=== PATIENT | female | born 1950 | race Caucasian/White ===

== ENCOUNTER 2020-09-15 06:35 | Outpatient (REF) | payer MEDICARE, SELFPAY ==
[2020-09-15 13:28] LABS: Hematocrit 41.9 % (37-47); Hemoglobin 13.4 g/dl (12.0-16.0); Mean Corpuscular Hemoglobin 30.2 pg (27.0-33.0); Mean Corpuscular Volume 94.6 fL (80-98); Mean Platelet Volume 9.6 fL (9.4-12.3); Platelet Count 254 X10*3/uL (160-400); Red Blood Count 4.43 X10*6/uL (4.20-5.50); Red Cell Distribution Width 11.9 % (11.0-16.0); White Blood Count 6.7 X10*3/uL (4.8-10.8)
[2020-09-15 13:57] LABS: Glucose Urine UA NEG (NEG); Leukocyte Esterase Urine TRACE (NEG); Nitrite Urine NEG (NEG); PH 7.5 (5.0-8.0); Specific Gravity - Urine 1.015 (1.005-1.025); Urine Blood 1+ (NEG); Urine Ketones NEG (NEG); Urine Protein NEG (NEG-TRACE)
[2020-09-15 14:02] LABS: Appearance Urine CLEAR; Color Urine YELLOW
[2020-09-15 14:12] LABS: Alanine Aminotransferase 18 U/L (0-31); Albumin Level 4.3 g/dL (3.5-5.0); Alkaline Phosphatase 70 U/L (39-117); Anion Gap 12 (12-20); Aspartate Amino Transferase 18 U/L (5-31); Bilirubin Total 0.3 mg/dL (0.0-1.0); Blood Urea Nitrogen 12 mg/dL (9-16); Calcium 9.1 mg/dL (8.4-10.2); Carbon Dioxide 29 mmol/L (22-29); Chloride 98 mmol/L (96-108); Cholesterol 246 mg/dL; Estimated Glomerular Filt Rate > 60; Glucose Fasting 93 mg/dL (60-99); HDL Cholesterol 70 mg/dL; LDL Cholesterol Calculated 146 mg/dl; Potassium 4.5 mmol/l (3.3-5.1); Sodium 134 mmol/L (135-145); Total Protein 7.1 g/dL (6.5-8.0); Triglycerides 151 mg/dL
[2020-09-15 14:17] LABS: Squamous Epithelial Cell Urine 1+ /LPF
[2020-09-15 14:18] LABS: Renal Epithelial Cells Urine 1+ /LPF
[2020-09-15 14:35] LABS: Thyroid Stimulating Hormone 1.06 uIU/mL (0.32-4.0); Vitamin D 25-OH Total 44.7 ng/mL (>30)
== END 2020-09-15 06:36 | disposition home or self-care (01) ==
LOC: HO.HMGCLDS 06:35
PROVIDERS: PCP Internal Medicine; Visit Provider Internal Medicine
DX: Z00.00 Encounter for general adult medical examination without abnormal findings (principal); E78.5 Hyperlipidemia, unspecified; E55.9 Vitamin D deficiency, unspecified; M79.7 Fibromyalgia
CPT/HCPCS: 36415; 80053; 80061; 81001; 81003; 82306; 84443; 85027

== ENCOUNTER 2020-10-12 09:12 | Outpatient (REF) | payer MEDICARE, SELFPAY ==
--- NOTE | 2020-10-12 09:15 | MM_ITS ---
EXAMINATION: MM SCREENING DIGITAL BREAST TOMOSYNTHESIS, BILATERAL CLINICAL INFORMATION: Screening. Asymptomatic. The lifetime risk of breast cancer based on the Tyrer-Cuzick Model is 5.1%. COMPARISON: Mammography: October 11, 2019 and studies dating back to May 15, 2016 TECHNIQUE: Digital breast tomosynthesis is performed in both the craniocaudal and mediolateral oblique views along with computer-aided detection (CAD). Synthesized 2D images are generated from the tomosynthesis. FINDINGS: There are scattered areas of fibroglandular density (ACR BI-RADS breast composition Category b). There are no significant masses, abnormal calcifications, or other abnormalities. MM/MM tomosynthesis screening BI IMPRESSION: There are no significant changes from prior study. ASSESSMENT: BI-RADS 1: Negative RECOMMENDATION: Routine annual mammography screening. This patient's information was entered into a reminder system with a target due date for their next mammogram.
== END 2020-10-12 09:13 | disposition home or self-care (01) ==
LOC: HO.MAMMO 09:12
PROVIDERS: Visit Provider Internal Medicine
DX: Z12.31 Encounter for screening mammogram for malignant neoplasm of breast (principal)
CPT/HCPCS: 77063; 77067

== ENCOUNTER 2020-12-29 09:00 | Outpatient (REF) | payer MEDICARE, SELFPAY ==
--- NOTE | ~2020-12-29 | XR_ITS ---
EXAMINATION: BILATERAL HAND X-RAY CLINICAL INFORMATION: Arthritis COMPARISON: None TECHNIQUE: 3 views each hand FINDINGS: Left: Bone alignment is normal. No fracture or dislocation is seen. There is arthritis at the first FPC joint and DIP joints with joint space narrowing and osteophyte formation. Soft tissues are unremarkable. Right: Bone alignment is normal. No fracture or dislocation is seen. There is arthritis at the first MCP see joint and DIP joints with joint space narrowing and osteophyte formation. Soft tissues are unremarkable. 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
--- NOTE | ~2020-12-29 | XR_ITS ---
EXAMINATION: BILATERAL HAND X-RAY CLINICAL INFORMATION: Arthritis COMPARISON: None TECHNIQUE: 3 views each hand FINDINGS: Left: Bone alignment is normal. No fracture or dislocation is seen. There is arthritis at the first RESIDENTIAL joint and DIP joints with joint space narrowing and osteophyte formation. Soft tissues are unremarkable. Right: Bone alignment is normal. No fracture or dislocation is seen. There is arthritis at the first MCP see joint and DIP joints with joint space narrowing and osteophyte formation. Soft tissues are unremarkable. XR/XR hand LT min 3V IMPRESSION: Bilateral osteoarthritis at the first RESIDENTIAL joints and DIP joints.
== END 2020-12-29 09:01 | disposition home or self-care (01) ==
LOC: HO.HMGCX 09:00
PROVIDERS: PCP Internal Medicine; Visit Provider Internal Medicine
DX: M19.90 Unspecified osteoarthritis, unspecified site (principal)
CPT/HCPCS: 73130

== ENCOUNTER 2021-01-01 06:11 | Outpatient (REF) | payer MEDICARE, SELFPAY ==
[2021-01-01 11:21] LABS: Hematocrit 43.5 % (37-47); Hemoglobin 14.2 g/dl (12.0-16.0); Mean Corpuscular HGB Conc 32.6 g/dl (31.0-35.0); Mean Corpuscular Hemoglobin 30.5 pg (27.0-33.0); Mean Corpuscular Volume 93.3 fL (80-98); Mean Platelet Volume 9.7 fL (9.4-12.3); Platelet Count 270 X10*3/uL (160-400); Red Blood Count 4.66 X10*6/uL (4.20-5.50); White Blood Count 7.5 X10*3/uL (4.8-10.8)
[2021-01-01 11:47] LABS: Alanine Aminotransferase 18 U/L (0-31); Albumin Level 4.4 g/dL (3.5-5.0); Alkaline Phosphatase 82 U/L (39-117); Anion Gap 14 (12-20); Aspartate Amino Transferase 19 U/L (5-31); Bilirubin Total 0.6 mg/dL (0.0-1.0); Blood Urea Nitrogen 10 mg/dL (9-16); Calcium 9.6 mg/dL (8.4-10.2); Carbon Dioxide 28 mmol/L (22-29); Chloride 99 mmol/L (96-108); Estimated Glomerular Filt Rate > 60; Glucose Fasting 96 mg/dL (60-99); Potassium 4.4 mmol/L (3.3-5.1); Rheumatoid Factor < 15.0 IU/mL (<15.0); Sodium 137 mmol/L (135-145); Total Protein 7.5 g/dL (6.5-8.0)
[2021-01-03 12:51] LABS: Cyclic Citrullinated Peptide <16 UNITS
== END 2021-01-01 06:12 | disposition home or self-care (01) ==
LOC: HO.HMGCLDS 06:11
PROVIDERS: PCP Internal Medicine; Visit Provider Internal Medicine
DX: M19.90 Unspecified osteoarthritis, unspecified site (principal)
CPT/HCPCS: 36415; 80053; 85027; 86200; 86431

== ENCOUNTER 2021-09-25 06:18 | Outpatient (REF) | payer MEDICARE, SELFPAY ==
[2021-09-25 11:50] LABS: Appearance Urine CLEAR; Color Urine YELLOW; Glucose Urine UA NEG (NEG); Leukocyte Esterase Urine 1+ (NEG); Nitrite Urine NEG (NEG); Urine Blood 2+ (NEG); Urine Ketones NEG (NEG); Urine Protein NEG (NEG-TRACE)
[2021-09-25 11:55] LABS: Hematocrit 39.8 % (37.0-47.0); Hemoglobin 13.4 g/dl (12.0-16.0); Mean Corpuscular HGB Conc 33.7 g/dl (31.0-35.0); Mean Corpuscular Hemoglobin 30.7 pg (27.0-33.0); Mean Corpuscular Volume 91.3 fL (80.0-98.0); Mean Platelet Volume 9.6 fL (9.4-12.3); Platelet Count 257 X10*3/uL (160-400); Red Blood Count 4.36 X10*6/uL (4.20-5.50); Red Cell Distribution Width 12.2 % (11.0-16.0); White Blood Count 6.6 X10*3/uL (4.8-10.8)
[2021-09-25 12:18] LABS: Alanine Aminotransferase 18 U/L (0-31); Albumin Level 4.1 g/dL (3.5-5.0); Alkaline Phosphatase 70 U/L (39-117); Anion Gap 14 (12-20); Aspartate Amino Transferase 18 U/L (5-31); Bilirubin Total 0.5 mg/dL (0.0-1.0); Blood Urea Nitrogen 10 mg/dL (9-16); Calcium 9.3 mg/dL (8.4-10.2); Carbon Dioxide 24 mmol/L (22-29); Chloride 95 mmol/L (96-108); Cholesterol 236 mg/dL; Estimated Glomerular Filt Rate > 60; Glucose Fasting 90 mg/dL (60-99); HDL Cholesterol 59 mg/dL; LDL Cholesterol Calculated 142 mg/dl; Potassium 4.3 mmol/L (3.3-5.1); Sodium 129 mmol/L (135-145); Total Protein 7.1 g/dL (6.5-8.0); Triglycerides 178 mg/dL
[2021-09-25 12:32] LABS: Renal Epithelial Cells Urine TRACE /LPF; Squamous Epithelial Cell Urine 1+ /LPF
[2021-09-25 12:33] LABS: Bacteria Urine TRACE /LPF
[2021-09-25 12:45] LABS: Thyroid Stimulating Hormone 1.39 uIU/mL (0.32-4.0); Vitamin D 25-OH Total 52.3 ng/mL (>30)
== END 2021-09-25 06:19 | disposition home or self-care (01) ==
LOC: HO.HMGCLDS 06:18
PROVIDERS: PCP Internal Medicine; Visit Provider Internal Medicine
DX: E78.5 Hyperlipidemia, unspecified (principal); G40.209 Localization-related (focal) (partial) symptomatic epilepsy and epileptic syndromes with complex partial seizures, not intractable, without status epilepticus; E55.9 Vitamin D deficiency, unspecified
CPT/HCPCS: 36415; 80053; 80061; 81001; 82306; 84443; 85027

== ENCOUNTER 2021-09-26 11:44 | Outpatient (REF) | payer MEDICARE, SELFPAY ==
--- NOTE | ~2021-09-26 | XR_ITS ---
EXAMINATION: XR THORACOLUMBAR SPINE CLINICAL INFORMATION: Hyperosmolality and hyponatremia COMPARISON: None TECHNIQUE: AP and lateral lumbar spine. FINDINGS: No acute thoracic spine fractures identified. There is multilevel degenerative disc disease seen from the mid through L1 with disc space narrowing and marginal sclerosis with some spurring. No abnormal paraspinal line bulge is seen. There is unfolding of the thoracic aorta. Visualized pedicles are intact. There is kyphosis present. XR/XR thoracic spine 2V IMPRESSION: Multilevel degenerative disc disease. No acute fracture identified.
[2021-09-26 14:25] LABS: Osmolality, Serum 283 mosm/kg (281-305)
[2021-09-26 14:42] LABS: Anion Gap 16 (12-20); Blood Urea Nitrogen 9 mg/dL (9-16); Calcium 9.7 mg/dL (8.4-10.2); Carbon Dioxide 23 mmol/L (22-29); Chloride 96 mmol/L (96-108); Estimated Glomerular Filt Rate > 60; Glucose Random 87 mg/dL (60-115); Sodium 131 mmol/L (135-145)
[2021-09-26 14:44] LABS: Osmolality Urine 271 mosm/kg (373-1093)
== END 2021-09-26 11:45 | disposition home or self-care (01) ==
LOC: HO.HMGCX 11:44
PROVIDERS: PCP Internal Medicine; Visit Provider Internal Medicine
DX: E87.1 Hypo-osmolality and hyponatremia (principal); M54.9 Dorsalgia, unspecified
CPT/HCPCS: 36415; 72070; 80048; 83930; 83935

== ENCOUNTER 2021-11-16 13:47 | Outpatient (REF) | payer MEDICARE, SELFPAY ==
--- NOTE | ~2021-11-16 | MM_ITS ---
EXAMINATION: MM SCREENING DIGITAL BREAST TOMOSYNTHESIS, BILATERAL CLINICAL INFORMATION: Screening. Asymptomatic. The lifetime risk of breast cancer based on the Tyrer-Cuzick Model is 5%. COMPARISON: Mammography: 10/12/2020, 10/11/2019, outside mammography 10/05/2018 ([facility]). TECHNIQUE: Digital breast tomosynthesis is performed in both the craniocaudal and mediolateral oblique views along with computer-aided detection (CAD). Synthesized 2D images are generated from the tomosynthesis. Additional right MLO view is provided. FINDINGS: There are scattered areas of fibroglandular density (ACR BI-RADS breast composition Category b). There are no significant masses, abnormal calcifications, or other abnormalities. Parenchymal pattern is similar to prior studies. There is no developing density or architectural abnormality. The axilla and skin contours are unremarkable. No significant changes. MM/MM tomosynthesis screening BI IMPRESSION: No mammographic evidence of malignancy. ASSESSMENT: BI-RADS 1: Negative RECOMMENDATION: Routine annual mammography screening. This patient's information was entered into a reminder system with a target due date for their next mammogram.
== END 2021-11-16 13:48 | disposition home or self-care (01) ==
LOC: HO.MAMMO 13:47
PROVIDERS: Visit Provider Internal Medicine
DX: Z12.31 Encounter for screening mammogram for malignant neoplasm of breast (principal)
CPT/HCPCS: 77063; 77067

== ENCOUNTER 2022-09-30 06:13 | Outpatient (REF) | payer MEDICARE, SELFPAY ==
[2022-09-30 12:15] LABS: Anion Gap 12 (12-20); Blood Urea Nitrogen 10 mg/dL (9-16); Calcium 9.8 mg/dL (8.4-10.2); Carbon Dioxide 28 mmol/L (22-29); Chloride 97 mmol/L (96-108); Estimated Glomerular Filt Rate > 60; Glucose Random 103 mg/dL (60-115); Potassium 4.1 mmol/L (3.3-5.1); Sodium 133 mmol/L (135-145)
== END 2022-09-30 06:14 | disposition home or self-care (01) ==
LOC: HO.HMGCLDS 06:13
PROVIDERS: PCP Internal Medicine; Visit Provider Internal Medicine
DX: E87.1 Hypo-osmolality and hyponatremia (principal)
CPT/HCPCS: 36415; 80048

== ENCOUNTER 2022-12-30 07:30 | Outpatient (REF) | payer MEDICARE, SELFPAY ==
--- NOTE | ~2022-12-30 | MM_ITS ---
EXAMINATION: MM SCREENING DIGITAL BREAST TOMOSYNTHESIS, BILATERAL CLINICAL INFORMATION: Screening. Asymptomatic. The lifetime risk of breast cancer based on the Tyrer-Cuzick Model is 7%. COMPARISON: Mammography: 11/16/2021, 10/12/2020, 10/11/2019; outside mammography 10/05/2018 ([facility]) TECHNIQUE: Digital breast tomosynthesis is performed in both the craniocaudal and mediolateral oblique views along with computer-aided detection (CAD). Synthesized 2D images are generated from the tomosynthesis. FINDINGS: There are scattered areas of fibroglandular density (ACR BI-RADS breast composition Category b). There are no significant masses, abnormal calcifications, or other abnormalities. Parenchymal pattern is similar to prior studies. There is no developing density or architectural abnormality. The axilla and skin contours are unremarkable. No significant changes. MM/MM tomosynthesis screening BI IMPRESSION: No mammographic evidence of malignancy. ASSESSMENT: BI-RADS 1: Negative RECOMMENDATION: Routine annual mammography screening. This patient's information was entered into a reminder system with a target due date for their next mammogram.
== END 2022-12-30 07:31 | disposition home or self-care (01) ==
LOC: HO.MAMMO 07:30
PROVIDERS: PCP Internal Medicine; Visit Provider Internal Medicine
DX: Z12.31 Encounter for screening mammogram for malignant neoplasm of breast (principal)
CPT/HCPCS: 77063; 77067

== ENCOUNTER 2023-01-10 06:33 | Outpatient (REF) | payer MEDICARE, SELFPAY ==
[2023-01-10 11:26] LABS: MANUAL DIFF FLAG NO
[2023-01-10 11:39] LABS: Basophils Absolute Auto 0.1 X10*3/uL (0.0-0.2); Basophils Percent Auto 0.8 % (0-2); Eosinophils Absolute Auto 0.1 X10*3/uL (0.0-0.4); Eosinophils Percent Auto 0.9 % (0-4); Hemoglobin 13.9 g/dl (12.0-16.0); Imm Gran Abs Auto 0.04 X10*3/uL (0.00-0.03); Imm Gran Pct Auto 0.6 % (0.0-0.4); Lymphocytes Absolute Auto 1.1 X10*3/uL (1.2-4.9); Mean Corpuscular HGB Conc 33.1 g/dl (31.0-35.0); Mean Corpuscular Volume 90.7 fL (80.0-98.0); Mean Platelet Volume 9.3 fL (9.4-12.3); Monocytes Absolute Auto 0.5 X10*3/uL (0.1-1.2); Monocytes Percent Auto 7.2 % (2-11); Neutrophils Absolute Auto 4.8 x10*3/uL (2.0-8.3); Neutrophils Percent Auto 73.5 % (45-73); Platelet Count 257 X10*3/uL (160-400); Red Blood Count 4.63 X10*6/uL (4.20-5.50); Red Cell Distribution Width 12.2 % (11.0-16.0); White Blood Count 6.5 X10*3/uL (4.8-10.8)
[2023-01-10 11:50] LABS: Alanine Aminotransferase 18 U/L (0-31); Albumin Level 4.3 g/dL (3.5-5.0); Alkaline Phosphatase 92 U/L (39-117); Anion Gap 14 (12-20); Aspartate Amino Transferase 18 U/L (5-31); Bilirubin Total 0.5 mg/dL (0.0-1.0); Blood Urea Nitrogen 10 mg/dL (9-16); Calcium 9.8 mg/dL (8.4-10.2); Carbon Dioxide 26 mmol/L (22-29); Chloride 96 mmol/L (96-108); Cholesterol 258 mg/dL; Estimated Glomerular Filt Rate > 60; Glucose Fasting 106 mg/dL (60-99); HDL Cholesterol 70 mg/dL; LDL Cholesterol Calculated 160 mg/dl; Potassium 4.3 mmol/L (3.3-5.1); Sodium 132 mmol/L (135-145); Total Protein 7.2 g/dL (6.5-8.0); Triglycerides 140 mg/dL
[2023-01-10 12:09] LABS: TSH reflex Free T4 1.19 uIU/mL (0.32-4.0); Vitamin D 25-OH Total 60.6 ng/mL (>30)
[2023-01-10 13:01] LABS: Osmolality, Serum 280 mosm/kg (281-305)
[2023-01-10 13:06] LABS: Osmolality Urine 289 mosm/kg (373-1093)
== END 2023-01-10 06:34 | disposition home or self-care (01) ==
LOC: HO.HMGCLDS 06:33
PROVIDERS: PCP Internal Medicine; Visit Provider Internal Medicine
DX: Z00.00 Encounter for general adult medical examination without abnormal findings (principal); E87.1 Hypo-osmolality and hyponatremia; E55.9 Vitamin D deficiency, unspecified; E78.5 Hyperlipidemia, unspecified
CPT/HCPCS: 36415; 80053; 80061; 82306; 83930; 83935; 84443; 85025

== ENCOUNTER 2024-01-06 07:23 | Outpatient (REF) | payer MEDICARE, SELFPAY ==
--- NOTE | ~2024-01-06 | MM_ITS ---
EXAMINATION: BONE DENSITOMETRY CLINICAL INDICATION: Asymptomatic menopausal state. COMPARISON: This is the patient's baseline examination. TECHNIQUE: Using a MySQUAR DXA System (software version: 13.1) manufactured by [employer], dual-energy x-ray absorptiometry was performed of the lumbar spine and left hip. The images are of good technical quality. Summary results are attached. FINDINGS: LEFT FEMUR, NECK: BMD 0.942 g/cm2, Z-score 0.5, T-score -0.7, normal. LEFT FEMUR, TOTAL: BMD 0.955 g/cm2, Z-score 0.5, T-score 0.4, normal. AP SPINE L1-L2 (excluding L3 and L4): The data of L1-L4 has been changed to exclude the L3 and L4 vertebral bodies, because degenerative sclerosis at these levels may cause overestimation of lumbar spine density. BMD 0.949 g/cm2, Z-score -1.0, T-score -1.8, osteopenia. IDENTIFIED RISK FACTORS: Menopause, anticonvulsant. HISTORY OF FRACTURE: None listed. MEDICATIONS: Vitamin D. MM/XR DEXA axial skeleton IMPRESSION: 1. DIAGNOSIS: Osteopenia based on the lowest T-score value of -1.8 in the lumbar spine applying World Health Organization criteria. 2. 10-YEAR FRACTURE RISK PREDICTION, FRAX: Major osteoporotic fracture (clinical spine, forearm, hip or shoulder) 8.1%. Hip fracture 0.8%. 3. Treatment Recommendations: NOF guidelines recommend consideration for treatment in postmenopausal women and men age 50 and older presenting with the following: -A hip or vertebral (clinical or morphometric) fracture. -T-score less than or equal to -2.5 at the femoral neck or spine after appropriate evaluation to exclude secondary causes. -Low bone mass at the hip or spine and a 10-year fracture probability by FRAX of greater than or equal to 3% for hip fracture or greater than or equal to 20% for major osteoporotic fracture based on the [place] adapted WHO algorithm. 4. Other Recommendations: All treatment decisions require clinical judgment and consideration of individual patient factors, including patient preferences, comorbidities, previous drug use, risk factors not captured in the FRAX model (e.g. frailty, falls, vitamin D deficiency, increased bone turnover, interval significant decline in bone density) and possible under or overestimation of fracture risk by FRAX. Additional medical evaluation for secondary cause of low bone mineral density may be appropriate. FUTURE SCAN RECOMMENDATION: People with diagnosed cases of osteoporosis or at high risk for fracture should have regular bone mineral density tests. For patients eligible for Medicare, routine testing is allowed once every 2 years. The testing frequency can be increased to one year for patients who have rapidly progressing disease, those who are receiving or discontinuing medical therapy to restore bone mass, or have additional risk factors.
== END 2024-01-06 07:24 | disposition home or self-care (01) ==
LOC: HO.MAMMO 07:23
PROVIDERS: PCP Internal Medicine; Visit Provider Internal Medicine
DX: Z12.31 Encounter for screening mammogram for malignant neoplasm of breast (principal); Z13.820 Encounter for screening for osteoporosis; Z78.0 Asymptomatic menopausal state
CPT/HCPCS: 77063; 77067; 77080

== ENCOUNTER → 2024-01-06 08:15 | Outpatient (BNV) | payer MEDICARE, SELFPAY | PROVIDERS: PCP Internal Medicine; Visit Provider Radiology Diagnostic Radiology | DX: Z12.31 Encounter for screening mammogram for malignant neoplasm of breast (principal) | CPT/HCPCS: 77063; 77067 ==

== ENCOUNTER 2024-01-09 08:33 | Outpatient (AMB) | payer MEDICARE, SELFPAY ==
[2024-01-09 08:35] VITALS: BP 136/76; PULSE 78; O2SAT 98; BMI 32.8
--- NOTE | 2024-01-09 08:35 | A.OFFPC_ITS ---
Vital Signs 01/09/24 08:35 Height 5 ft 6 in Weight 203 lb BMI 32.8 BP 136/76 Blood Pressure Location Lt brachial Position Sitting Pulse 78 Pulse Source Pulse Oximeter Pulse Oximetry (%) 98 Oxygen Delivery Method Room Air Intake Visit Reasons: ER follow up Intake Note: Pt is here today for ER follow up visit. Allergies Quinolones [QUINOLONES] Allergy (Unknown, Verified 01/09/24 08:38) UNKNOWN Mpfopvc-WSG-OfO Reductase Inhibitor [GFANZRT-WFD-EWT REDUCTASE INHIBITOR] Allergy (Unknown, Verified 01/09/24 08:38) UNKNOWN Medication List - Last Reconciled 01/09/24 by Darline Mckeon MD aspirin 81 mg PO DAILY biotin 1,000 mcg PO DAILY cholecalciferol (vitamin D3) 25 mcg PO DAILY coenzyme Q10 (Ultra CoQ10) PO ezetimibe 10 mg PO DAILY flu vac 2020 [id number](PF) 60 mcg (15 mcg x 4)/0.5 mL IM glucosamine-chondroitin 250-200 mg (Osteo Bi-Flex) 1 tab PO ONCE oxcarbazepine 300 mg PO BID turmeric root extract 500 mg PO DAILY Tobacco use date assessed: 01/09/24 Fall risk assessment: 1 Fall in past year Last assessed Fall Risk: 01/09/24 Dental Screening Dental Screen Date: 01/09/24 Did you have a dental visit in the last 12 months?: Yes Did you have a dental problem in the last 6 months where you did not have access to dental care?: No Was dental information given to patient?: Patient has dentist HPI ER follow up HPI Details Patient presents for the follow-up of ER visit on December 18 after slip and fall in the bathroom. patient hit her face and developed some bruises around her right eye. ER workup including head CT was negative. Patient denies loss of consciousness, headache, change in balance following the fall. She is going for cataract surgery in mid February. [facility] Medical History (Updated 01/09/24 @ 09:35 by Darline Mckeon MD) Postmenopausal Hyponatremia Back pain Hyperacusis of left ear Arthritis Annual physical exam (~09/27/21) Vitamin D deficiency Normal colonoscopy Hyperlipidemia Inguinal hernia Complex partial seizure Fibromyalgia Surgical History History of colonoscopy Family History Father Parkinson disease Dementia Mother CVD (cardiovascular disease) Brother Afib Daughter No problems noted. Daughter No problems noted. Social History Housing: House Alcohol intake: current Alcohol intake frequency: a few times a month Patient Tobacco Use Status: Former Tobacco user Quit Date: 1983 e-Cigarette/Vaping Use: Never Used Current occupational status: employed Cognitive needs: No Hearing needs: No Vision needs: Yes Questionnaire Thrive Questionnaire Date Thrive assessed: 01/08/23 AUDIT C Alcohol Use Questionnaire (AUDIT-C) 1. How often do you have a drink containing alcohol?: Never 3. How often do you have six or more drinks on one occasion?: Never Total Score: 0 DAYA-7 AMB Questionnaire DAYA-7 Date DAYA - 7 assessed: 01/08/23 Feeling nervous, anxious, or on edge: 1 = Several days Not being able to stop or control worryin = Several days Worrying too much about different things: 1 = Several days Trouble relaxin = Several days Being so restless that it is hard to sit still: 0 = Not at all Becoming easily annoyed or irritable: 1 = Several days Feeling afraid as if something awful might happen: 1 = Several days Total DAYA-7 score (0-4 normal; 5-9 mild; 10-14 moderate; 15-21 severe): 6 Source: Developed by Drs. Rommel Atkinson, Yisel Morales, Saul Troy and colleagues, with an educational lisa from [employer]. Review of Systems Const All systems reviewed & are unremarkable except as noted in HPI and below Reports no additional complaints Eyes Reports no additional complaints ENT Reports no additional complaints Card Reports no additional complaints Resp Reports no additional complaints GI Reports no additional complaints Reports no additional complaints Physical exam (Primary Care) Vital Signs: Last Vital Signs Pulse 78 01/09/24 08:35 BP 136/76 01/09/24 08:35 Pulse Ox 98 01/09/24 08:35 Oxygen Delivery Method Room Air 01/09/24 08:35 BMI result Body Mass Index 32.8 Tobacco/Smoking Status: Tobacco use Status Tobacco use date assessed 01/09/24 01/09/24 08:41 Patient Tobacco Use Status Former Tobacco user 01/09/24 08:35 e-Cigarette/Vaping Use Never Used 01/09/24 08:35 Thrive Assessment: Date of Thrive Assessment Date Thrive assessed 01/08/23 01/09/24 08:35 Const General: no acute distress HENMT Other: Periorbital ecchymosis around the right eye Ears: hearing grossly normal bilaterally Neck Neck: Yes supple Resp Effort & Inspection: normal respiratory effort Auscultation: clear to auscultation bilaterally Cardio Rhythm: regular rhythm Heart sounds: S1 normal heart sound present and S2 normal heart sound present Assessment and Plan Assessment & Plan (1) Hyponatremia: 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 Code(s): E87.1 - Hypo-osmolality and hyponatremia Plan: Continue fluid restriction patient will return for fasting labs including comprehensive panel, she follow-up in 2 months (2) Cataract: Code(s): H26.9 - Unspecified cataract Plan: Patient is medically cleared for cataract surgery (3) Vitamin D deficiency: Code(s): E55.9 - Vitamin D deficiency, unspecified Plan: Continue vitamin-D supple (4) Hyperlipidemia: Comment: intolerant to statin, improved on Zetia, refuses treatment Code(s): E78.5 - Hyperlipidemia, unspecified Plan: Continue low-cholesterol diet and Zetia (5) Osteopenia: Comment: DEXA 01/03 Code(s): M85.80 - Other specified disorders of bone density and structure, unspecified site Plan: Weight-bearing exercises and vitamin-D supplement discussed with the patient Orders: Orders Comprehensive [place]. Panel Fast Today E55.9 - Vitamin D deficiency, unspecified, E78.5 - Hyperlipidemia, unspecified, E87.1 - Hypo-osmolality and hyponatremia, H26.9 - Unspecified cataract TSH reflex Free T4 Today E55.9 - Vitamin D deficiency, unspecified, E78.5 - Hyperlipidemia, unspecified, E87.1 - Hypo-osmolality and hyponatremia, H26.9 - Unspecified cataract Complete Blood Count Auto Diff Today E55.9 - Vitamin D deficiency, unspecified, E78.5 - Hyperlipidemia, unspecified, E87.1 - Hypo-osmolality and hyponatremia, H26.9 - Unspecified cataract Lipid Panel Today E55.9 - Vitamin D deficiency, unspecified, E78.5 - Hyperlipidemia, unspecified, E87.1 - Hypo-osmolality and hyponatremia, H26.9 - Unspecified cataract Vitamin D 25-OH Total Today E55.9 - Vitamin D deficiency, unspecified, E78.5 - Hyperlipidemia, unspecified, E87.1 - Hypo-osmolality and hyponatremia, H26.9 - Unspecified cataract Coding Level of Care Code Est Pt Level 4 (79514) Diagnoses Hyponatremia E87.1 Cataract H26.9 Vitamin D deficiency E55.9 Hyperlipidemia E78.5 Osteopenia M85.80
== END 2024-01-09 09:38 | disposition home or self-care (01) ==
PROVIDERS: PCP Internal Medicine; Visit Provider Internal Medicine
DX: E87.1 Hypo-osmolality and hyponatremia (principal); H26.9 Unspecified cataract; E55.9 Vitamin D deficiency, unspecified; E78.5 Hyperlipidemia, unspecified; M85.80 Other specified disorders of bone density and structure, unspecified site
CPT/HCPCS: 99214

== ENCOUNTER 2024-02-24 08:25 | Outpatient (REF) | payer MEDICARE, SELFPAY ==
[2024-02-24 10:17] LABS: MANUAL DIFF FLAG NO
[2024-02-24 10:24] LABS: Basophils Absolute Auto 0.1 X10*3/uL (0.0-0.2); Basophils Percent Auto 1.2 % (0-2); Eosinophils Absolute Auto 0.1 X10*3/uL (0.0-0.4); Eosinophils Percent Auto 2.1 % (0-4); Hematocrit 40.7 % (37.0-47.0); Hemoglobin 13.4 g/dl (12.0-16.0); Imm Gran Abs Auto 0.04 X10*3/uL (0.00-0.03); Imm Gran Pct Auto 0.7 % (0.0-0.4); Lymphocytes Absolute Auto 1.5 X10*3/uL (1.2-4.9); Lymphocytes Percent Auto 25.8 % (20-40); Mean Corpuscular HGB Conc 32.9 g/dl (31.0-35.0); Mean Corpuscular Hemoglobin 30.5 pg (27.0-33.0); Mean Corpuscular Volume 92.7 fL (80.0-98.0); Mean Platelet Volume 9.2 fL (9.4-12.3); Monocytes Absolute Auto 0.5 X10*3/uL (0.1-1.2); Monocytes Percent Auto 9.4 % (2-11); Neutrophils Absolute Auto 3.4 x10*3/uL (2.0-8.3); Neutrophils Percent Auto 60.8 % (45-73); Platelet Count 256 X10*3/uL (160-400); Red Blood Count 4.39 X10*6/uL (4.20-5.50); White Blood Count 5.6 X10*3/uL (4.8-10.8)
[2024-02-24 11:00] LABS: Alanine Aminotransferase 17 U/L (0-31); Albumin Level 4.3 g/dL (3.5-5.0); Alkaline Phosphatase 80 U/L (39-117); Anion Gap 12 (12-20); Aspartate Amino Transferase 19 U/L (5-31); Bilirubin Total 0.4 mg/dL (0.0-1.0); Blood Urea Nitrogen 9 mg/dL (9-16); Calcium 9.8 mg/dL (8.4-10.2); Carbon Dioxide 27 mmol/L (22-29); Chloride 99 mmol/L (96-108); Cholesterol 236 mg/dL (<200); Estimated Glomerular Filt Rate > 60; Glucose Fasting 96 mg/dL (60-99); HDL Cholesterol 72 mg/dL (>40); LDL Cholesterol Calculated 137 mg/dL (<100); Sodium 134 mmol/L (135-145); Total Protein 7.6 g/dL (6.5-8.0); Triglycerides 137 mg/dL (<150)
[2024-02-24 11:09] LABS: Vitamin D 25-OH Total 65.6 ng/mL (>30)
== END 2024-02-24 08:26 | disposition home or self-care (01) ==
LOC: HO.HMGCLDS 08:25
PROVIDERS: PCP Internal Medicine; Visit Provider Internal Medicine
DX: E87.1 Hypo-osmolality and hyponatremia (principal); H26.9 Unspecified cataract; E78.5 Hyperlipidemia, unspecified; E55.9 Vitamin D deficiency, unspecified
CPT/HCPCS: 36415; 80053; 80061; 82306; 84443; 85025

== ENCOUNTER 2024-03-11 10:01 | Outpatient (AMB) | payer MEDICARE, SELFPAY ==
--- NOTE | 2024-03-11 10:11 | A.OFFPC_ITS ---
Vital Signs 03/11/24 10:17 Height 5 ft 6 in Weight 204 lb BMI 32.9 BP 130/74 Blood Pressure Location Rt brachial Position Sitting Pulse 72 Pulse Source Pulse Oximeter Pulse Oximetry (%) 97 Oxygen Delivery Method Room Air Intake Visit Reasons: 2 month follow up Intake Note: Pt is here today for 2 months follow up visit on BP. Allergies Quinolones [QUINOLONES] Allergy (Unknown, Verified 03/11/24 10:12) UNKNOWN Qvujbgc-TQK-DxL Reductase Inhibitor [YZGALJS-HAK-EXY REDUCTASE INHIBITOR] Allergy (Unknown, Verified 03/11/24 10:12) UNKNOWN Medication List - Last Reconciled 03/11/24 by Darline Mckeon MD aspirin 81 mg PO DAILY biotin 1,000 mcg PO DAILY cholecalciferol (vitamin D3) 25 mcg PO DAILY coenzyme Q10 (Ultra CoQ10) PO ezetimibe 10 mg PO DAILY flu vac 2020 [id number](PF) 60 mcg (15 mcg x 4)/0.5 mL IM glucosamine-chondroitin 250-200 mg (Osteo Bi-Flex) 1 tab PO ONCE olmesartan 5 mg PO DAILY oxcarbazepine 300 mg PO BID turmeric root extract 500 mg PO DAILY Tobacco use date assessed: 03/11/24 Dental Screening Dental Screen Date: 01/09/24 HPI 2 month follow up HPI Details Pt presents for f/u hyperlipidemia, borderline hyponatremia secondary to SIADH. Seizure disorder is controlled on oxcarbamazepine [facility] Medical History (Updated 03/11/24 @ 11:01 by Darline Mckeon MD) Complex partial seizure Postmenopausal Hyponatremia Back pain Hyperacusis of left ear Arthritis Annual physical exam (~09/27/21) Vitamin D deficiency Normal colonoscopy Hyperlipidemia Inguinal hernia Fibromyalgia Surgical History History of colonoscopy Family History Father Parkinson disease Dementia Mother CVD (cardiovascular disease) Brother Afib Daughter No problems noted. Daughter No problems noted. Social History Housing: House Alcohol intake: current Alcohol intake frequency: a few times a month Patient Tobacco Use Status: Former Tobacco user Quit Date: 1983 e-Cigarette/Vaping Use: Never Used service: No Current occupational status: employed Cognitive needs: No Hearing needs: No Vision needs: Yes Questionnaire Thrive Questionnaire Date Thrive assessed: 01/08/23 DAYA-7 AMB Questionnaire DAYA-7 Date DAYA - 7 assessed: 01/08/23 Source: Developed by Drs. Rommel Atkinson, Yisel Morales, Saul Troy and colleagues, with an educational lisa from [employer]. Review of Systems Const All systems reviewed & are unremarkable except as noted in HPI and below ENT Reports no additional complaints Card Reports no additional complaints Resp Reports no additional complaints GI Reports no additional complaints Reports no additional complaints Physical exam (Primary Care) Vital Signs: Last Vital Signs Pulse 72 03/11/24 10:17 BP 130/74 03/11/24 10:17 Pulse Ox 97 03/11/24 10:17 Oxygen Delivery Method Room Air 03/11/24 10:17 BMI result Body Mass Index 32.9 Tobacco/Smoking Status: Tobacco use Status Tobacco use date assessed 03/11/24 03/11/24 10:12 Patient Tobacco Use Status Former Tobacco user 03/11/24 10:12 e-Cigarette/Vaping Use Never Used 03/11/24 10:12 Thrive Assessment: Date of Thrive Assessment Date Thrive assessed 01/08/23 03/11/24 10:12 Const General: no acute distress HENMT Head: Yes normal to inspection Throat: Yes posterior oropharynx normal Eyes General: appearance normal, both eyes and all related structures Neck Neck: Yes no lymphadenopathy and Yes supple Resp Effort & Inspection: normal respiratory effort Auscultation: clear to auscultation bilaterally Cardio Rhythm: regular rhythm Heart sounds: S1 normal heart sound present and S2 normal heart sound present GI Inspection: Yes normal to inspection Assessment and Plan Assessment & Plan (1) Hyponatremia: 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, on fluid restriction Code(s): E87.1 - Hypo-osmolality and hyponatremia Plan: Monitor sodium level continue fluid restriction (2) HTN (hypertension): Code(s): I10 - Essential (primary) hypertension Plan: Start 5 mg of olmesartan, follow-up in 1 month with a blood work before (3) Hyperlipidemia: Comment: intolerant to statin, improved on Zetia, Code(s): E78.5 - Hyperlipidemia, unspecified Plan: Continue Zetia (4) Complex partial seizure: Comment: 2017 Code(s): G40.209 - Localization-related (focal) (partial) symptomatic epilepsy and epileptic syndromes with complex partial seizures, not intractable, without status epilepticus Plan: Follow-up with neurology controlled on oxcarbamazepine Orders: Orders Comprehensive Met. Panel Today Medications: New olmesartan 5 mg PO DAILY 90 tabs 0RF Coding Level of Care Code Est Pt Level 4 (70319) Diagnoses Hyponatremia E87.1 HTN (hypertension) I10 Hyperlipidemia E78.5 Complex partial seizure G40.209
[2024-03-11 10:17] VITALS: BP 130/74; PULSE 72; O2SAT 97; BMI 32.9
== END 2024-03-11 10:56 | disposition home or self-care (01) ==
PROVIDERS: PCP Internal Medicine; Visit Provider Internal Medicine
DX: E87.1 Hypo-osmolality and hyponatremia (principal); I10 Essential (primary) hypertension; E78.5 Hyperlipidemia, unspecified; G40.209 Localization-related (focal) (partial) symptomatic epilepsy and epileptic syndromes with complex partial seizures, not intractable, without status epilepticus
CPT/HCPCS: 99214

== ENCOUNTER 2024-05-21 11:03 | Outpatient (AMB) | payer MEDICARE, SELFPAY ==
[2024-05-21 11:11] VITALS: BP 134/72; PULSE 74; O2SAT 97; BMI 31.8
--- NOTE | 2024-05-21 11:11 | A.OFFPC_ITS ---
Vital Signs 05/21/24 11:11 Height 5 ft 6 in Weight 197 lb BMI 31.8 BP 134/72 Blood Pressure Location Rt brachial Position Sitting Pulse 74 Pulse Source Pulse Oximeter Pulse Oximetry (%) 97 Oxygen Delivery Method Room Air Intake Visit Reasons: 1M F/U Allergies Quinolones [QUINOLONES] Allergy (Unknown, Verified 05/21/24 11:26) UNKNOWN Idvezlk-UEP-CnN Reductase Inhibitor [UARWIKM-LGT-VIA REDUCTASE INHIBITOR] Allergy (Unknown, Verified 05/21/24 11:26) UNKNOWN olmesartan Adverse Reaction (Verified 05/21/24 11:54) polyuria Medication List - Last Reconciled 05/21/24 by Darline Mckeon MD aspirin 81 mg PO DAILY biotin 1,000 mcg PO DAILY cholecalciferol (vitamin D3) 25 mcg PO DAILY coenzyme Q10 (Ultra CoQ10) PO ezetimibe 10 mg PO DAILY flu vac 2019 [id number](PF) 60 mcg (15 mcg x 4)/0.5 mL IM glucosamine-chondroitin 250-200 mg (Osteo Bi-Flex) 1 tab PO ONCE oxcarbazepine 300 mg PO BID turmeric root extract 500 mg PO DAILY Tobacco use date assessed: 05/21/24 Dental Screening Dental Screen Date: 01/09/24 HPI 1M F/U HPI Details Patient presents for the follow-up. She took olmesartan only for 3 days but developed polyuria which resolved after patient stopped. She has been working out at the gym 4 times a week. Patient has been taking Zetia for hyperlipidemia. [facility] Medical History (Updated 05/21/24 @ 11:57 by Darline Mckeon MD) Complex partial seizure Postmenopausal Hyponatremia Back pain Hyperacusis of left ear Arthritis Annual physical exam (~09/27/21) Vitamin D deficiency Normal colonoscopy Hyperlipidemia Inguinal hernia Fibromyalgia Surgical History History of colonoscopy Family History Father Parkinson disease Dementia Mother CVD (cardiovascular disease) Brother Afib Daughter No problems noted. Daughter No problems noted. Social History Housing: House Alcohol intake: current Alcohol intake frequency: a few times a month Patient Tobacco Use Status: Former Tobacco user e-Cigarette/Vaping Use: Never Used service: No Current occupational status: employed Cognitive needs: No Hearing needs: No Vision needs: Yes Questionnaire PHQ-9 Over the last 2 weeks, how often have you been bothered by any of the following problems? 1. Little interest or pleasure in doing things: not at all 2. Feeling down, depressed, or hopeless: not at all 3. Trouble falling or staying asleep, or sleeping too much: not at all 4. Feeling tired or having little energy: not at all 5. Poor appetite or overeating: not at all 6. Feeling bad about yourself - or that you are a failure or have let yourself or your family down: not at all 7. Trouble concentrating on things, such as reading the newspaper or watching television: not at all 8. Moving or speaking so slowly that other people could have noticed. Or the opposite - being so fidgety or restless that you have been moving around a lot more than usual: not at all 9. Thoughts that you would be better off or of hurting yourself in some way: not at all Total score: 0 Depression Screening Interpretation: Negative Depression Screening Done: Yes Source: Developed by Drs. Rommel Atkinson, Yisel Morales, Saul Troy and colleagues, with an educational lisa from [employer]. Thrive Questionnaire Date Thrive assessed: 05/21/24 I am a: Patient What is your living situation today?: I have a steady place to live Within the past 12 months, did the food you bought not last and you didn't have the money to get more?: Never true Within the past 12 months, did you worry whether your food would run out before you got money to buy more?: Never true Do you have trouble paying for medicines?: No Do you have trouble getting transportation to medical appointments?: No Do you have trouble paying your heating and electricity bill?: No Do you have trouble taking care of your child, family member or friend?: No Do you have trouble with day-to-day activities such as bathing, preparing meals, shopping, managing finances, etc.?: No Are you currently unemployed and looking for a job?: No Are you interested in more education?: No Please select the resources that you would like help with: None THRIVE Score: 0 DAYA-7 AMB Questionnaire DAYA-7 Date DAYA - 7 assessed: 05/21/24 Feeling nervous, anxious, or on edge: 0 = Not at all Not being able to stop or control worryin = Not at all Worrying too much about different things: 0 = Not at all Trouble relaxin = Not at all Being so restless that it is hard to sit still: 0 = Not at all Becoming easily annoyed or irritable: 0 = Not at all Feeling afraid as if something awful might happen: 0 = Not at all Total DAYA-7 score (0-4 normal; 5-9 mild; 10-14 moderate; 15-21 severe): 0 Source: Developed by Drs. Rommel Atkinson, Yisel Morales, Saul Troy and colleagues, with an educational lisa from [employer]. Review of Systems Const All systems reviewed & are unremarkable except as noted in HPI and below Card Reports no additional complaints Resp Reports no additional complaints GI Reports no additional complaints Reports no additional complaints Physical exam (Primary Care) Vital Signs: Last Vital Signs Pulse 74 05/21/24 11:11 BP 134/72 05/21/24 11:11 Pulse Ox 97 05/21/24 11:11 Oxygen Delivery Method Room Air 05/21/24 11:11 BMI result Body Mass Index 31.8 Tobacco/Smoking Status: Tobacco use Status Tobacco use date assessed 05/21/24 05/21/24 11:39 Patient Tobacco Use Status Former Tobacco user 05/21/24 11:11 e-Cigarette/Vaping Use Never Used 05/21/24 11:11 PHQ-9: PHQ-9 Score PHQ-9: Total score 0 05/21/24 11:30 Depression Screening Interpretation: Negative Thrive Assessment: Date of Thrive Assessment Date Thrive assessed 05/21/24 05/21/24 11:30 Const General: no acute distress HENMT Head: Yes normal to inspection Neck Neck: Yes supple Resp Effort & Inspection: normal respiratory effort Auscultation: clear to auscultation bilaterally Cardio Rhythm: regular rhythm Heart sounds: S1 normal heart sound present and S2 normal heart sound present GI Inspection: Yes normal to inspection Assessment and Plan Assessment & Plan (1) Hyperlipidemia: Comment: intolerant to statin, improved on Zetia, Code(s): E78.5 - Hyperlipidemia, unspecified Plan: Continue Zetia low-cholesterol diet check lipid profile in 4 months (2) Hyponatremia: 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 Panel Fast 4 Months E78.5 - Hyperlipidemia, unspecified, E87.1 - Hypo-osmolality and hyponatremia, I10 - Essential (primary) hypertension Complete Blood Count Auto Diff 4 Months E78.5 - Hyperlipidemia, unspecified, E87.1 - Hypo-osmolality and hyponatremia, I10 - Essential (primary) hypertension Lipid Panel 4 Months E78.5 - Hyperlipidemia, unspecified, E87.1 - Hypo-osmolal ity and hyponatremia, I10 - Essential (primary) hypertension Coding Level of Care Code Est Pt Level 3 (59057) Diagnoses Hyperlipidemia E78.5 Hyponatremia E87.1 HTN (hypertension) I10
== END 2024-05-21 11:58 | disposition home or self-care (01) ==
PROVIDERS: PCP Internal Medicine; Visit Provider Internal Medicine
DX: E78.5 Hyperlipidemia, unspecified (principal); E87.1 Hypo-osmolality and hyponatremia; I10 Essential (primary) hypertension
CPT/HCPCS: 99213

== ENCOUNTER 2024-09-20 06:25 | Outpatient (REF) | payer MEDICARE, SELFPAY ==
[2024-09-20 10:11] LABS: MANUAL DIFF FLAG NO
[2024-09-20 10:20] LABS: Basophils Absolute Auto 0.1 X10*3/uL (0.0-0.2); Basophils Percent Auto 1.1 % (0-2); Eosinophils Absolute Auto 0.1 X10*3/uL (0.0-0.4); Eosinophils Percent Auto 1.8 % (0-4); Hematocrit 40.2 % (37.0-47.0); Hemoglobin 13.3 g/dl (12.0-16.0); Imm Gran Abs Auto 0.04 X10*3/uL (0.00-0.03); Imm Gran Pct Auto 0.6 % (0.0-0.4); Lymphocytes Absolute Auto 1.3 X10*3/uL (1.2-4.9); Lymphocytes Percent Auto 18.9 % (20-40); Mean Corpuscular HGB Conc 33.1 g/dl (31.0-35.0); Mean Corpuscular Hemoglobin 30.9 pg (27.0-33.0); Mean Corpuscular Volume 93.3 fL (80.0-98.0); Mean Platelet Volume 9.2 fL (9.4-12.3); Monocytes Absolute Auto 0.6 X10*3/uL (0.1-1.2); Monocytes Percent Auto 8.5 % (2-11); Neutrophils Absolute Auto 4.9 x10*3/uL (2.0-8.3); Neutrophils Percent Auto 69.1 % (45-73); Platelet Count 266 X10*3/uL (160-400); Red Blood Count 4.31 X10*6/uL (4.20-5.50); Red Cell Distribution Width 11.9 % (11.0-16.0)
[2024-09-20 10:45] LABS: Alanine Aminotransferase 19 U/L (0-31); Albumin Level 4.3 g/dL (3.5-5.0); Alkaline Phosphatase 75 U/L (39-117); Anion Gap 12 (12-20); Aspartate Amino Transferase 22 U/L (5-31); Bilirubin Total 0.4 mg/dL (0.0-1.0); Blood Urea Nitrogen 11 mg/dL (9-16); Carbon Dioxide 26 mmol/L (22-29); Chloride 97 mmol/L (96-108); Cholesterol 224 mg/dL (<200); Estimated Glomerular Filt Rate > 60; Glucose Fasting 95 mg/dL (60-99); HDL Cholesterol 73 mg/dL (>40); LDL Cholesterol Calculated 131 mg/dL (<100); Potassium 3.9 mmol/L (3.3-5.1); Sodium 131 mmol/L (135-145); Total Protein 7.8 g/dL (6.5-8.0); Triglycerides 103 mg/dL (<150)
== END 2024-09-20 06:26 | disposition home or self-care (01) ==
LOC: HO.HMGCLDS 06:25
PROVIDERS: PCP Internal Medicine; Visit Provider Internal Medicine
DX: E78.5 Hyperlipidemia, unspecified (principal); I10 Essential (primary) hypertension; E87.1 Hypo-osmolality and hyponatremia
CPT/HCPCS: 36415; 80053; 80061; 85025

== ENCOUNTER 2024-09-21 10:07 | Outpatient (AMB) | payer MEDICARE, SELFPAY ==
[2024-09-21 10:31] VITALS: BP 136/80; PULSE 81; O2SAT 97; BMI 30.2
--- NOTE | 2024-09-21 10:31 | A.OFFPC_ITS ---
Vital Signs 09/21/24 10:31 Height 5 ft 6 in Weight 187 lb BMI 30.2 BP 136/80 Blood Pressure Location Lt brachial Position Sitting Pulse 81 Pulse Source Pulse Oximeter Pulse Oximetry (%) 97 Oxygen Delivery Method Room Air Intake Visit Reasons: Annual PE/Over due Intake Note: Pt is here today for PE. Allergies Quinolones [QUINOLONES] Allergy (Unknown, Verified 09/21/24 10:38) muscle loss Yjvhvhy-QUZ-NfC Reductase Inhibitor [LKUGAWZ-YGQ-NJZ REDUCTASE INHIBITOR] Allergy (Unknown, Verified 09/21/24 10:38) weak lost muscle mass olmesartan Adverse Reaction (Verified 09/21/24 10:38) polyuria Medication List - Last Reconciled 09/21/24 by Darline Mckeon MD aspirin 81 mg PO DAILY biotin 1,000 mcg PO DAILY cholecalciferol (vitamin D3) 2,000 units PO DAILY coenzyme Q10 (Ultra CoQ10) PO ezetimibe 10 mg PO DAILY flu vac 2020 65up-qrxNW68M(PF) 60 mcg (15 mcg x 4)/0.5 mL IM glucosamine-chondroitin 250-200 mg (Osteo Bi-Flex) 1 tab PO ONCE magnesium PO oxcarbazepine 300 mg PO BID turmeric root extract 500 mg PO DAILY Tobacco use date assessed: 09/21/24 Fall risk assessment: 1 Fall in past year Last assessed Fall Risk: 09/21/24 Dental Screening Dental Screen Date: 09/21/24 Did you have a dental visit in the last 12 months?: Yes Did you have a dental problem in the last 6 months where you did not have access to dental care?: No Was dental information given to patient?: Patient has dentist HPI Annual PE/Over due HPI Details Pt presents for PE. PFS Medical History Complex partial seizure Postmenopausal Hyponatremia Back pain Hyperacusis of left ear Arthritis Annual physical exam (~09/27/21) Vitamin D deficiency Normal colonoscopy Hyperlipidemia Inguinal hernia Fibromyalgia Surgical History History of colonoscopy Family History Father Parkinson disease Dementia Mother CVD (cardiovascular disease) Brother Afib Melanoma Daughter No problems noted. Daughter No problems noted. Social History Housing: House Alcohol intake: current Alcohol intake frequency: a few times a month Patient Tobacco Use Status: Former Tobacco user e-Cigarette/Vaping Use: Never Used service: No Current occupational status: employed Cognitive needs: No Hearing needs: No Vision needs: Yes Questionnaire PHQ-9 Over the last 2 weeks, how often have you been bothered by any of the following problems? 1. Little interest or pleasure in doing things: not at all 2. Feeling down, depressed, or hopeless: not at all 3. Trouble falling or staying asleep, or sleeping too much: not at all 4. Feeling tired or having little energy: several days 5. Poor appetite or overeating: not at all 6. Feeling bad about yourself - or that you are a failure or have let yourself or your family down: not at all 7. Trouble concentrating on things, such as reading the newspaper or watching television: not at all 8. Moving or speaking so slowly that other people could have noticed. Or the opposite - being so fidgety or restless that you have been moving around a lot more than usual: not at all 9. Thoughts that you would be better off or of hurting yourself in some way: not at all Total score: 1 Depression Screening Interpretation: Negative Depression Screening Done: Yes 94729 - PHQ-9 Billing: Yes Source: Developed by Drs. Rommel Atkinson, Yisel Morales, Saul Troy and colleagues, with an educational lisa from [employer]. Thrive Questionnaire Date Thrive assessed: 09/21/24 I am a: Patient What is your living situation today?: I have a steady place to live Within the past 12 months, did the food you bought not last and you didn't have the money to get more?: Never true Within the past 12 months, did you worry whether your food would run out before you got money to buy more?: Never true Do you have trouble paying for medicines?: No Do you have trouble getting transportation to medical appointments?: No Do you have trouble paying your heating and electricity bill?: No Do you have trouble taking care of your child, family member or friend?: No Do you have trouble with day-to-day activities such as bathing, preparing meals, shopping, managing finances, etc.?: No Are you currently unemployed and looking for a job?: No Are you interested in more education?: No Please select the resources that you would like help with: None Currently or been in a relationship where the following occur: No concerns reported THRIVE Score: 0 AUDIT C Alcohol Use Questionnaire (AUDIT-C) 1. How often do you have a drink containing alcohol?: Never 3. How often do you have six or more drinks on one occasion?: Never Total Score: 0 DAYA-7 AMB Questionnaire DAYA-7 Date DAYA - 7 assessed: 09/21/24 Feeling nervous, anxious, or on edge: 1 = Several days Not being able to stop or control worryin = Not at all Worrying too much about different things: 0 = Not at all Trouble relaxin = Not at all Being so restless that it is hard to sit still: 0 = Not at all Becoming easily annoyed or irritable: 0 = Not at all Feeling afraid as if something awful might happen: 1 = Several days Total DAYA-7 score (0-4 normal; 5-9 mild; 10-14 moderate; 15-21 severe): 2 Source: Developed by Drs. Rommel Atkinson, Yisel Morales, Saul Troy and colleagues, with an educational lisa from [employer]. DAYA-7 Assessment Billing DAYA-7 Assessment Tool: DAYA-7 Assessment 85738 Review of Systems Const All systems reviewed & are unremarkable except as noted in HPI and below Eyes Reports no additional complaints ENT Reports no additional complaints Card Reports no additional complaints Resp Reports no additional complaints GI Reports no additional complaints Reports no additional complaints Physical exam (Primary Care) Vital Signs: Last Vital Signs Pulse 81 09/21/24 10:31 BP 136/80 09/21/24 10:31 Pulse Ox 97 09/21/24 10:31 Oxygen Delivery Method Room Air 09/21/24 10:31 BMI result Body Mass Index 30.2 Tobacco/Smoking Status: Tobacco use Status Tobacco use date assessed 09/21/24 09/21/24 10:47 Patient Tobacco Use Status Former Tobacco user 09/21/24 10:31 e-Cigarette/Vaping Use Never Used 09/21/24 10:31 PHQ-9: PHQ-9 Score PHQ-9: Total score 1 09/21/24 10:47 Depression Screening Interpretation: Negative Thrive Assessment: Date of Thrive Assessment Date Thrive assessed 09/21/24 09/21/24 10:47 Currently or been in a relationship where the following occur: No concerns reported Const General: no acute distress HENMT Head: Yes normal to inspection General nose exam: Normal external nose present Face and sinus: Yes normal facial exam Mouth: Normal oral and palatal mucosa present Throat: Yes posterior oropharynx normal Eyes General: appearance normal, both eyes and all related structures Neck Neck: Yes supple Resp Effort & Inspection: normal respiratory effort Auscultation: clear to auscultation bilaterally Cardio Rhythm: regular rhythm Heart sounds: S1 normal heart sound present and S2 normal heart sound present GI Inspection: Yes normal to inspection Palpation (GI): Soft to palpation Percussion: Yes normal to percussion Auscultation: normal bowel sounds Coding Level of Care Code Est Pt Prev Care >65y(08339) Diagnoses Complex partial seizure G40.209 HTN (hypertension) I10 Hyponatremia E87.1 Annual physical exam Z00.00 Vitamin D deficiency E55.9 Hyperlipidemia E78.5 Additional Codes DAYA-7 Assessment Billing - DAYA-7 Assessment Tool: DAYA-7 Assessment 71649 ([id number]) PHQ-9 - 17068 - PHQ-9 Billing: Yes ([id number]) Assessment & Plan Assessment & Plan (1) Complex partial seizure: Comment: 2016 Code(s): G40.209 - Localization-related (focal) (partial) symptomatic epilepsy and epileptic syndromes with complex partial seizures, not intractable, without status epilepticus Category: Medical Plan: Controlled on oxcarbazepine (2) HTN (hypertension): Comment: Intolerant to olmesartan Code(s): I10 - Essential (primary) hypertension Category: Medical Plan: off meds, continue low-sodium diet regular physical activity and weight loss follow-up in 6 months (3) Hyponatremia: 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, on fluid restriction Code(s): E87.1 - Hypo-osmolality and hyponatremia Category: Medical Plan: Continue fluid restriction and monitor sodium level monthly for next 3 months (4) Annual physical exam: Onset Date: ~09/27/21 Code(s): Z00.00 - Encounter for general adult medical examination without abnormal fin dings Category: Medical Plan: Well-balanced diet regular physical activity discussed with the patient she is up-to-date with mammogram colonoscopy (5) Vitamin D deficiency: Code(s): E55.9 - Vitamin D deficiency, unspecified Category: Medical Plan: Continue vitamin-D supplement (6) Hyperlipidemia: Comment: intolerant to statin, improved on Zetia, Code(s): E78.5 - Hyperlipidemia, unspecified Category: Medical Plan: Continue Zetia Orders: Orders Basic Metabolic Panel 1 Month E78.5 - Hyperlipidemia, unspecified, E87.1 - Hypo-osmolality and hyponatremia, I10 - Essential (primary) hypertension Basic Metabolic Panel 2 Months E78.5 - Hyperlipidemia, unspecified, E87.1 - Hypo-osmolality and hyponatremia, I10 - Essential (primary) hypertension Lipid Panel 6 Months E78.5 - Hyperlipidemia, unspecified, E87.1 - Hypo- osmolality and hyponatremia, I10 - Essential (primary) hypertension Basic Metabolic Panel 3 Months E78.5 - Hyperlipidemia, unspecified, E87.1 - Hypo-osmolality and hyponatremia, I10 - Essential (primary) hypertension Comprehensive [place]. Panel Fast 6 Months E78.5 - Hyperlipidemia, unspecified, E87.1 - Hypo-osmolality and hyponatremia, I10 - Essential (primary) hypertension Complete Blood Count Auto Diff 6 Months E78.5 - Hyperlipidemia, unspecified, E87.1 - Hypo-osmolality and hyponatremia, I10 - Essential (primary) hypertension TSH reflex Free T4 6 Months E78.5 - Hyperlipidemia, unspecified, E87.1 - Hypo- osmolality and hyponatremia, I10 - Essential (primary) hypertension Magnesium 6 Months E78.5 - Hyperlipidemia, unspecified, E87.1 - Hypo-osmolality and hyponatremia, I10 - Essential (primary) hypertension
== END 2024-09-21 11:16 | disposition home or self-care (01) ==
PROVIDERS: PCP Internal Medicine; Visit Provider Internal Medicine
DX: G40.209 Localization-related (focal) (partial) symptomatic epilepsy and epileptic syndromes with complex partial seizures, not intractable, without status epilepticus (principal); I10 Essential (primary) hypertension; E87.1 Hypo-osmolality and hyponatremia; Z00.00 Encounter for general adult medical examination without abnormal findings; E55.9 Vitamin D deficiency, unspecified; E78.5 Hyperlipidemia, unspecified

== ENCOUNTER → 2024-09-21 10:07 | Outpatient (BNVA) | payer MEDICARE, SELFPAY | PROVIDERS: PCP Internal Medicine; Visit Provider Internal Medicine | DX: Z00.00 Encounter for general adult medical examination without abnormal findings (principal); G40.209 Localization-related (focal) (partial) symptomatic epilepsy and epileptic syndromes with complex partial seizures, not intractable, without status epilepticus; E78.5 Hyperlipidemia, unspecified; E78.00 Pure hypercholesterolemia, unspecified; E87.1 Hypo-osmolality and hyponatremia; I10 Essential (primary) hypertension | CPT/HCPCS: 96127; 99397 ==

== ENCOUNTER 2024-10-21 08:50 | Outpatient (REF) | payer MEDICARE, SELFPAY ==
[2024-10-21 10:16] LABS: Anion Gap 11 (12-20); Blood Urea Nitrogen 8 mg/dL (9-16); Calcium 10.1 mg/dL (8.4-10.2); Carbon Dioxide 27 mmol/L (22-29); Chloride 95 mmol/L (96-108); Estimated Glomerular Filt Rate > 60; Glucose Random 100 mg/dL (60-115); Potassium 4.1 mmol/L (3.3-5.1); Sodium 129 mmol/L (135-145)
== END 2024-10-21 08:51 | disposition home or self-care (01) ==
LOC: HO.HMGCLDS 08:50
PROVIDERS: PCP Internal Medicine; Visit Provider Internal Medicine
DX: I10 Essential (primary) hypertension (principal); E87.1 Hypo-osmolality and hyponatremia; E78.5 Hyperlipidemia, unspecified
CPT/HCPCS: 36415; 80048

== ENCOUNTER 2024-11-05 10:15 | Outpatient (REF) | payer MEDICARE, SELFPAY ==
[2024-11-05 13:32] LABS: Anion Gap 9 (12-20); Blood Urea Nitrogen 14 mg/dL (9-16); Calcium 9.7 mg/dL (8.4-10.2); Carbon Dioxide 29 mmol/L (22-29); Chloride 98 mmol/L (96-108); Estimated Glomerular Filt Rate > 60; Glucose Random 85 mg/dL (60-115); Potassium 4.2 mmol/L (3.3-5.1); Sodium 132 mmol/L (135-145)
== END 2024-11-05 10:16 | disposition home or self-care (01) ==
LOC: HO.HMGCLDS 10:15
PROVIDERS: PCP Internal Medicine; Visit Provider Internal Medicine
DX: E87.1 Hypo-osmolality and hyponatremia (principal)
CPT/HCPCS: 36415; 80048

== ENCOUNTER 2024-12-02 10:21 | Outpatient (REF) | payer MEDICARE, SELFPAY ==
[2024-12-02 13:53] LABS: Anion Gap 12 (12-20); Blood Urea Nitrogen 12 mg/dL (9-16); Calcium 9.7 mg/dL (8.4-10.2); Carbon Dioxide 27 mmol/L (22-29); Chloride 100 mmol/L (96-108); Estimated Glomerular Filt Rate > 60; Glucose Random 79 mg/dL (60-115); Potassium 3.9 mmol/L (3.3-5.1); Sodium 135 mmol/L (135-145)
== END 2024-12-02 10:22 | disposition home or self-care (01) ==
LOC: HO.HMGCLDS 10:21
PROVIDERS: PCP Internal Medicine; Visit Provider Internal Medicine
DX: I10 Essential (primary) hypertension (principal); E87.1 Hypo-osmolality and hyponatremia; E78.5 Hyperlipidemia, unspecified
CPT/HCPCS: 36415; 80048

== ENCOUNTER 2024-12-31 14:02 | Outpatient (REF) | payer MEDICARE, SELFPAY ==
--- OUTSIDE RECORDS SUMMARY | 2024-12-31 14:31 | XMS_ITS | Clinical Summary ---
Author Organization [facility] Address [address] [place] [address] Care Team Providers Care Neuropsychology Medical Consultant Name Role Phone Unavailable Primary Care Provider Unavailabl e Social History Tobacco Use Types Packs/Day Years Used Date Smoking Tobacco: Never Assessed Comments Unknown Sex and Gender Information Value Date Recorded Sex Assigned at Not on file Legal Sex Female 4:29 PM EST Gender Identity Not on file Sexual Orientation Not on file Plan of Treatment Health Maintenance Due Date Last Done Comments DTaP,Tdap,and Td Vaccines (1 - Tdap) 1971 Pneumococcal Vaccine: 50+ Ye ars (1 of 1 - PCV) 2002 Zoster Vaccines (1 of 2) 2002 Breast Cancer Screening 10/05/2020 10/05/2018 Colorectal Cancer Screening: Colonoscopy 07/05/2024 Depression Screening 07/05/2024 Falls Risk Assessment 07/05/2024 Hepatitis C Screening 07/05/2024 Osteoporosis Screening (Bone Density Screening) 07/05/2024 Social Influencers of Health Screening 07/05/2024 COVID-19 Vaccine (1 - 2023-2 5 season) 2024 Influenza Vaccine (#1) 2024 RSV Immunization Patients 60 + Years Old (1 - 1-dose 75+ series) 2027 HIB Vaccines Aged Out No longer eligi ble based on patient's age to complete this topic HPV Vaccines Aged Out No longer eligi ble based on patient's age to complete this topic Hepatitis A Vaccines Aged Out No long er eligible based on patient's age to complete this topic Hepatitis B Vaccines Aged Out No long er eligible based on patient's age to complete this topic IPV Vaccines Aged Out No longer eligi ble based on patient's age to complete this topic MMR Vaccines Aged Out No longer eligi ble based on patient's age to complete this topic Meningococcal ACWY Vaccine Aged Out N o longer eligible based on patient's age to complete this topic Meningococcal B Vacine Aged Out No lo nger eligible based on patient's age to complete this topic RSV Immunization Patients Un starr 20 months Aged Out No longer eligible b ased on patient's age to complete this topic Varicella Vaccines Aged Out No longer eligible based on patient's age to complete this topic Procedures Procedure Name Priority Date/Time Associated Diagnosis Comments [facility] SCREENING DIGITAL Routine 10/05/2018 8:23 AM EST Encounter for screening mammogram for malignant neoplasm of breast from Last 3 Months or Most Recently Relevant to Health Maintenance Results * [facility] SCREENING DIGITAL (10/05/2018 8:23 AM EST) Anatomical Region Laterality Modality Mammography 10/05/2018 7:27 AM EST Narrative 10/05/2018 8:[address] [facility] Diagnostic Imaging Department [address] [place] [address] Patient: ??MARTHA SCOTT ?/Age/Sex: 1950 - 68 - F Unit#: ??[id number] ? Location/Status: ??SPDIMAM/REG CLI ? Mnemonic/Ordering Site: ??DIGSC/SPMAM Ordering Physician: ??CELIO RAMESH DO [place] Screening Digital - 10/05/18 - 0746 INDICATION: SCREENING COMPARISON: [facility] mammograms dating back to ?? 08/13/2012 FINDINGS: CC and MLO views of the breasts were obtained, using full field digital mammography with 3D tomosynthesis views in the MLO projection. Computer aided detection with the [employer] 7.2-Fiberspar was employed. The breasts contain scattered fibroglandular tissues. A noncalcified nodule within the anteromedial right breast is not significantly changed compared with multiple prior exams, in keeping with a benign finding. No suspicious masses, suspicious microcalcifications, or areas of architectural distortion are identified. ??There are no secondary signs of breast malignancy. Compared to the prior exam, no adverse interval change. IMPRESSION: ??No specific mammographic evidence of breast malignancy. Lack of a mammographic finding in the presence of a clinically suspicious palpable abnormality does not preclude the possibility of malignancy or alter the indications for biopsy. BI-RADS ??- Category 2 - Benign finding 3342F, 7025F Annual screening mammography is recommended. Patient entered into a reminder system with a target date for the next mammogram. (G0202 / [id number]) , ??[id number] Dictating Physician: ??QUINTEN MASON MD Electronically Signed by: ??QUINTEN MASON MD Dic Date/Time: ??10/05/18 0758 Sign date/Time: ??10/05/18 0823 Procedure Note Quinten Mason MD - 10/29/[address] [facility] Diagnostic Imaging Department [address] [place] [address] Patient: JORGEMARTHA M /Age/Sex: 1950 - Unit#: [id number] Location/Status: SPDIMAM/REG CLI [facility] Physician: CELIO RAMESH DO [place] Screening Digital - 10/05/18 - 0746 INDICATION: SCREENING COMPARISON: [facility] mammograms dating back to 08/13/2012 FINDINGS: CC and MLO views of the breasts were obtained, using full field digital mammography with 3D tomosynthesis views in the MLO projection. Computeraided detection with the [employer] 7.2-H was employed. The breasts contain scattered fibroglandular tissues. A noncalcifiednodule within the anteromedial right breast is not significantly changed comparedwith multiple prior exams, in keeping with a benign finding. No suspicious masses, suspicious microcalcifications, or areas ofarchitectural distortion are identified. There are no secondary signs of breastmalignancy. Compared to the prior exam, no adverse interval change. IMPRESSION: No specific mammographic evidence of breast malignancy. Lack of a mammographic finding in the presence of a clinicallysuspicious palpable abnormality does not preclude the possibility of malignancy oralter the indications for biopsy. BI-RADS - Category 2 - Benign finding 3342F, 7025F Annual screening mammography is recommended. Patient entered into a reminder system with a target date for the next mammogram. [id number] [id number]) , [id number] Dictating Physician: QUINTEN MASON MD Electronically Signed by: QUINTEN MASON MD Dic Date/Time: 10/05/18 0758 Sign date/Time: 10/05/18 0823 [facility] DO IM BI PROCEDURES Final Result from Last 3 Months or Most Recently Relevant to Health Maintenance
[2024-12-31 17:14] LABS: Anion Gap 13 (12-20); Blood Urea Nitrogen 14 mg/dL (9-16); Calcium 9.9 mg/dL (8.4-10.2); Carbon Dioxide 26 mmol/L (22-29); Chloride 101 mmol/L (96-108); Estimated Glomerular Filt Rate > 60; Glucose Random 137 mg/dL (60-115); Potassium 3.8 mmol/L (3.3-5.1); Sodium 136 mmol/L (135-145)
== END 2024-12-31 14:03 | disposition home or self-care (01) ==
LOC: HO.HMGCLDS 14:02
PROVIDERS: PCP Internal Medicine; Visit Provider Internal Medicine
DX: I10 Essential (primary) hypertension (principal); E87.1 Hypo-osmolality and hyponatremia; E78.5 Hyperlipidemia, unspecified
CPT/HCPCS: 36415; 80048

== ENCOUNTER 2025-01-19 07:22 | Outpatient (REF) | payer MEDICARE, SELFPAY | END 2025-01-19 07:23 | disposition home or self-care (01) | LOC: HO.MAMMO 07:22 | PROVIDERS: PCP Internal Medicine; Visit Provider Internal Medicine | DX: Z12.31 Encounter for screening mammogram for malignant neoplasm of breast (principal) | CPT/HCPCS: 77063; 77067 ==

== ENCOUNTER → 2025-01-19 07:30 | Outpatient (BNV) | payer MEDICARE, SELFPAY | PROVIDERS: PCP Internal Medicine; Visit Provider Internal Medicine | DX: Z12.31 Encounter for screening mammogram for malignant neoplasm of breast (principal) | CPT/HCPCS: 77063; 77067 ==

== ENCOUNTER 2025-03-30 06:31 | Outpatient (REF) | payer MEDICARE, SELFPAY ==
--- OUTSIDE RECORDS SUMMARY | 2025-03-30 06:34 | XMS_ITS | Clinical Summary ---
Author Organization [facility] ity Address [address] [place] [address] Care Team Providers Care Nanotechnology Technician Name Role Phone Unavailable Primary Care Provider [...] Influencers of Health Screening 07/05/2024 COVID-19 Vaccine ( - 2023-2 5 season) 2024 Influenza Vaccine (Season Ended) 2025 RSV Immunization Adult Patie nts (1 - 1-dose 75+ series) 2027 HIB [...] age to complete this topic Meningococcal B Vaccine Aged Out No l onger eligible based on patient's age to complete this topic RSV Immunization Patients Un starr 20 months Aged Out No longer eligible b ased on patient's age to complete this topic Varicella Vaccines Aged Out No longer eligible based on patient's age to complete this topic Procedures Procedure Name Priority Date/Time Associated Diagnosis Comments [facility] SCREENING DIGITAL Routine 10/05/2018 8:23 AM EST Encounter for screening mammogram for malignant neoplasm of breast from Last 3 Months or Most Recently Relevant to Health Maintenance Results * [facility] SCREENING DIGITAL (10/05/2018 8:23 AM EST) Anatomical Region Laterality Modality Mammography 10/05/2018 7:27 AM EST Narrative 10/05/2018 8:23 AM EST [facility] Diagnostic Imaging Department [address] [place] [address] Patient: ??MARTHA SCOTT ?/Age/Sex: 1950 - 68 - F Unit#: ??[id number] ? Location/Status: ??SPDIMAM/REG CLI ? Mnemonic/Ordering Site: ??DIGSC/SPMAM Ordering Physician: ??CELIO RAMESH DO [place] Screening Digital - 10/05/18 - 0746 INDICATION: SCREENING COMPARISON: [facility] mammograms dating back to ?? 08/13/2012 FINDINGS: CC and MLO views of the breasts were obtained, using full field digital mammography with 3D tomosynthesis views in the MLO projection. Computer aided detection with the EncrypTix 7.2-H was employed. The breasts contain scattered [...] date for the next mammogram. (G0202 / [id number]) , ??[id number] Dictating Physician: ??QUINTEN MASON MD Electronically Signed by: ??QUINTEN MASON MD Dic Date/Time: ??10/05/18 0758 Sign date/Time: ??10/05/18 0823 Procedure Note Quinten Mason MD - 10/29/2022 [facility] Diagnostic Imaging Department [address] [place] [address] Patient: JORGEMARTHA M /Age/Sex: 1950 68 - F Unit#: [id number] [facility] Order[facility] Physician: CELIO RAMESH DO [place] Screening Digital - 10/05/18 - 0746 INDICATION: SCREENING COMPARISON: [facility] mammograms dating back to 08/13/2012 FINDINGS: CC and MLO views of the breasts were obtained, using full field digital mammography with 3D tomosynthesis views in the MLO projection. Computeraided detection with the EncrypTix 7.2-H was employed. The breasts contain scattered [...] a target date for the next mammogram. G0927 / [id number]) , [id number] Dictating Physician: QUINTEN MASON MD Electronically Signed by: QUINTEN MASON MD Dic Date/Time: 10/05/18 0758 Sign date/Time: 10/05/18 0823 Celio Ramesh DO IM BI PROCEDURES Final Result from Last 3 Months or Most Recently Relevant to Health Maintenance
[2025-03-30 10:06] LABS: MANUAL DIFF FLAG NO
[2025-03-30 10:13] LABS: Basophils Absolute Auto 0.1 X10*3/uL (0.0-0.2); Basophils Percent Auto 1.4 % (0-2); Eosinophils Absolute Auto 0.2 X10*3/uL (0.0-0.4); Hematocrit 41.1 % (37.0-47.0); Hemoglobin 13.5 g/dl (12.0-16.0); Imm Gran Abs Auto 0.03 X10*3/uL (0.00-0.03); Imm Gran Pct Auto 0.5 % (0.0-0.4); Lymphocytes Absolute Auto 1.7 X10*3/uL (1.2-4.9); Lymphocytes Percent Auto 28.5 % (20-40); Mean Corpuscular HGB Conc 32.8 g/dl (31.0-35.0); Mean Corpuscular Hemoglobin 30.8 pg (27.0-33.0); Mean Corpuscular Volume 93.6 fL (80.0-98.0); Mean Platelet Volume 9.6 fL (9.4-12.3); Monocytes Absolute Auto 0.6 X10*3/uL (0.1-1.2); Monocytes Percent Auto 9.8 % (2-11); Neutrophils Absolute Auto 3.3 x10*3/uL (2.0-8.3); Neutrophils Percent Auto 55.8 % (45-73); Platelet Count 228 X10*3/uL (160-400); Red Blood Count 4.39 X10*6/uL (4.20-5.50); Red Cell Distribution Width 12.1 % (11.0-16.0); White Blood Count 5.8 X10*3/uL (4.8-10.8)
[2025-03-30 11:54] LABS: Alanine Aminotransferase 18 U/L (0-31); Albumin Level 4.2 g/dL (3.5-5.0); Alkaline Phosphatase 62 U/L (39-117); Anion Gap 11 (12-20); Aspartate Amino Transferase 23 U/L (5-31); Bilirubin Total 0.4 mg/dL (0.0-1.0); Blood Urea Nitrogen 12 mg/dL (9-16); Calcium 9.5 mg/dL (8.4-10.2); Carbon Dioxide 27 mmol/L (22-29); Chloride 102 mmol/L (96-108); Cholesterol 243 mg/dL (<200); Estimated Glomerular Filt Rate > 60; Glucose Fasting 98 mg/dL (60-99); HDL Cholesterol 65 mg/dL (>40); LDL Cholesterol Calculated 154 mg/dL (<100); Magnesium 2.1 mg/dL (1.6-2.6); Potassium 4.2 mmol/L (3.3-5.1); Sodium 136 mmol/L (135-145); Total Protein 7.3 g/dL (6.5-8.0); Triglycerides 120 mg/dL (<150)
[2025-03-30 12:21] LABS: TSH reflex Free T4 1.49 uIU/mL (0.32-4.0)
== END 2025-03-30 06:32 | disposition home or self-care (01) ==
LOC: HO.HMGCLDS 06:31
PROVIDERS: PCP Internal Medicine; Visit Provider Internal Medicine
DX: I10 Essential (primary) hypertension (principal); E87.1 Hypo-osmolality and hyponatremia; E78.5 Hyperlipidemia, unspecified
CPT/HCPCS: 36415; 80053; 80061; 83735; 84443; 85025

== ENCOUNTER 2025-08-25 11:35 | Outpatient (AMB) | payer MEDICARE, SELFPAY ==
[2025-08-25 11:38] VITALS: BP 130/68; PULSE 67; RESP 18; TEMP 36.7; O2SAT 95; BMI 31.0
--- NOTE | 2025-08-25 11:38 | A.OFFPC_ITS ---
Vital Signs 08/25/25 11:38 Height 5 ft 6 in Weight 192 lb BMI 31.0 BP 130/68 Blood Pressure Location Rt brachial Position Sitting Respiration 18 Pulse 67 Pulse Source Pulse Oximeter Temp 98.0 F Temp Source Oral Pulse Oximetry (%) 95 Oxygen Delivery Method Room Air Intake Visit Reasons: sciatica and right knee problem Intake Note: Pt is here today for a sick visit. Pt c/o R side lower back pain that goes down her R leg. Allergies Quinolones (QUINOLONES) Allergy (Unknown, Verified 08/25/25 11:40) muscle loss Xfqiult-NAV-MvF Reductase Inhibitor (ZCCQKJX-ORY-ICH REDUCTASE INHIBITOR) Allergy (Unknown, Verified 08/25/25 11:40) weak lost muscle mass olmesartan Adverse Reaction (Verified 08/25/25 11:40) polyuria Medication List - Last Reconciled 08/25/25 by Darline Mckeon MD aspirin 81 mg PO DAILY cholecalciferol (vitamin D3) 5,000 units PO DAILY coenzyme Q10 (Ultra CoQ10) PO ezetimibe 10 mg PO DAILY flu vac 2020 65up-wyoWC17N(PF) 60 mcg (15 mcg x 4)/0.5 mL IM glucosamine-chondroitin 250-200 mg (Osteo Bi-Flex) 1 tab PO ONCE [magnesium lysinate glycinate 200mg daily] oxcarbazepine 300 mg PO BID turmeric root extract 500 mg PO DAILY [vitafusion Hair,skin,and nails formula 3 gummies per day] [wild [place] oil 1000mg ] Tobacco use date assessed: 08/25/25 Fall risk assessment: No Falls in past year Last assessed Fall Risk: 08/25/25 Dental Screening Dental Screen Date: 08/25/25 Did you have a dental visit in the last 12 months?: Yes Did you have a dental problem in the last 6 months where you did not have access to dental care?: No Was dental information given to patient?: Patient has dentist HPI sciatica and right knee problem HPI Details Patient presents complaining of recurrent lower back pain radiating to right lower extremity on and off for the last 2 months. The episodes are usually triggered but patient work in the garden bending down. She denies any weakness in the right lower extremity, change in bowel or bladder function. [facility] Medical History (Updated 08/25/25 @ 16:06 by Darline Mckeon MD) Lower back pain Complex partial seizure Postmenopausal Hyponatremia Back pain Hyperacusis of left ear Arthritis Annual physical exam (~09/27/21) Vitamin D deficiency Normal colonoscopy Hyperlipidemia Inguinal hernia Fibromyalgia Surgical History History of colonoscopy Family History Father Parkinson disease Dementia Mother CVD (cardiovascular disease) Brother Afib Melanoma Daughter No problems noted. Daughter No problems noted. Social History Housing: House Alcohol intake: current Alcohol intake frequency: a few times a month Patient Tobacco Use Status: Former Tobacco user e-Cigarette/Vaping Use: Never Used service: No Current occupational status: employed Cognitive needs: No Hearing needs: No Vision needs: Yes Questionnaire PHQ-9 Over the last 2 weeks, how often have you been bothered by any of the following problems? 1. Little interest or pleasure in doing things: not at all 2. Feeling down, depressed, or hopeless: not at all 3. Trouble falling or staying asleep, or sleeping too much: not at all 4. Feeling tired or having little energy: several days 5. Poor appetite or overeating: not at all 6. Feeling bad about yourself - or that you are a failure or have let yourself or your family down: not at all 7. Trouble concentrating on things, such as reading the newspaper or watching television: not at all 8. Moving or speaking so slowly that other people could have noticed. Or the opposite - being so fidgety or restless that you have been moving around a lot more than usual: not at all 9. Thoughts that you would be better off or of hurting yourself in some way: not at all Total score: 1 Depression Screening Interpretation: Negative Depression Screening Done: Yes 46561 - PHQ-9 Billing: Yes Source: Developed by Drs. Rommel Atkinson, Yisel Morales, Saul Troy and colleagues, with an educational lisa from [employer] Thrive Questionnaire Date Thrive assessed: 08/25/25 I am a: Patient What is your living situation today?: I have a steady place to live Within the past 12 months, did the food you bought not last and you didn't have the money to get more?: Never true Within the past 12 months, did you worry whether your food would run out before you got money to buy more?: Never true Do you have trouble paying for medicines?: No Do you have trouble getting transportation to medical appointments?: No Do you have trouble paying your heating and electricity bill?: No Do you have trouble taking care of your child, family member or friend?: No Do you have trouble with day-to-day activities such as bathing, preparing meals, shopping, managing finances, etc.?: No Are you currently unemployed and looking for a job?: No Are you interested in more education?: No Please select the resources that you would like help with: None Currently or been in a relationship where the following occur: No concerns reported THRIVE Score: 0 DAYA-7 AMB Questionnaire DAYA-7 Date DAYA - 7 assessed: 08/25/25 Feeling nervous, anxious, or on edge: 0 = Not at all Not being able to stop or control worryin = Not at all Worrying too much about different things: 0 = Not at all Trouble relaxin = Not at all Being so restless that it is hard to sit still: 0 = Not at all Becoming easily annoyed or irritable: 0 = Not at all Feeling afraid as if something awful might happen: 0 = Not at all Total DAYA-7 score (0-4 normal; 5-9 mild; 10-14 moderate; 15-21 severe): 0 Source: Developed by Drs. Rommel Atkinson, Yisel Morales, Saul Troy and colleagues, with an educational lisa from [employer] DAYA-7 Assessment Billing DAYA-7 Assessment Tool: DAYA-7 Assessment 12169 Review of Systems Const All systems reviewed & are unremarkable except as noted in HPI and below Card Reports no additional complaints Resp Reports no additional complaints GI Reports no additional complaints Reports no additional complaints Physical exam (Primary Care) Vital Signs: Last Vital Signs Temp 98.0 F 08/25/25 11:38 Pulse 67 08/25/25 11:38 Resp 18 08/25/25 11:38 BP 130/68 08/25/25 11:38 Pulse Ox 95 08/25/25 11:38 Oxygen Delivery Method Room Air 08/25/25 11:38 BMI result Body Mass Index 31.0 Tobacco/Smoking Status: Tobacco use Status Tobacco use date assessed 08/25/25 08/25/25 11:43 Patient Tobacco Use Status Former Tobacco user 08/25/25 11:43 e-Cigarette/Vaping Use Never Used 08/25/25 11:43 PHQ-9: PHQ-9 Score PHQ-9: Total score 1 08/25/25 12:54 Depression Screening Interpretation: Negative Thrive Assessment: Date of Thrive Assessment Date Thrive assessed 08/25/25 08/25/25 11:45 Currently or been in a relationship where the following occur: No concerns reported Const General: no acute distress HENMT Head: Yes normal to inspection Face and sinus: Yes normal facial exam Resp Effort & Inspection: normal respiratory effort Auscultation: clear to auscultation bilaterally Cardio Rhythm: regular rhythm Heart sounds: S1 normal heart sound present and S2 normal heart sound present Back/Spine/Pelvis Other: There is decreased range of motion lumbar spine paraspinal tenderness in lower lumbar region right more than left. Straight leg rising 90 degrees bilaterally deep tendon reflexes 1+ bilaterally Extrem General: Yes no clubbing, cyanosis or edema Coding Level of Care Code Est Pt Level 4 (64726) Diagnoses Hyperlipidemia E78.5 Complex partial seizure G40.209 Lower back pain M54.50 Additional Codes DAYA-7 Assessment Billing - DAYA-7 Assessment Tool: DAYA-7 Assessment 07011 ([id number]) PHQ-9 - 78899 - PHQ-9 Billing: Yes ([id number]) Assessment & Plan Assessment & Plan (1) Hyperlipidemia: Comment: intolerant to statin, improved on Zetia, Code(s): E78.5 - Hyperlipidemia, unspecified Category: Medical Plan: Continue Zetia (2) Complex partial seizure: Comment: 2016 Code(s): G40.209 - Localization-related (focal) (partial) symptomatic epilepsy and epilep tic syndromes with complex partial seizures, not intractable, without status epilepticus Category: Medical Plan: Controlled on oxcarbazepine (3) Lower back pain: Comment: With sciatica to the right lower extremity Code(s): M54.50 - Low back pain, unspecified Category: Medical Plan: Patient will be referred to physical therapy Orders: Orders PT Evaluation and Treatment Today M54.50 - Low back pain, unspecified Complete Blood Count Auto Diff 1 Month E78.5 - Hyperlipidemia, unspecified, G40.209 - Localization-related (focal) (partial) symptomatic epilepsy and epileptic syndromes with complex partial seizures, not intractable, without status epilepticus, Z00.00 - Encounter for general adult medical examination without abnormal findings Hemoglobin A1c 1 Month E78.5 - Hyperlipidemia, unspecified, G40.209 - Localization-related (focal) (partial) symptomatic epilepsy and epileptic syndromes with complex partial seizures, not intractable, without status epilepticus, Z00.00 - Encounter for general adult medical examination without abnormal findings Lipid Panel 1 Month E78.5 - Hyperlipidemia, unspecified, G40.209 - Localization-related (focal) (partial) symptomatic epilepsy and epileptic syndromes with complex partial seizures, not intractable, without status epilepticus, Z00.00 - Encounter for general adult medical examination without abnormal findings TSH reflex Free T4 1 Month E78.5 - Hyperlipidemia, unspecified, G40.209 - Localization-related (focal) (partial) symptomatic epilepsy and epileptic syndromes with complex partial seizures, not intractable, without status epilepticus, Z00.00 - Encounter for general adult medical examination without abnormal findings Comprehensive [place]. Panel Fast 1 Month E78.5 - Hyperlipidemia, unspecified, G40.209 - Localization-related (focal) (partial) symptomatic epilepsy and epileptic syndromes with complex partial seizures, not intractable, without status epilepticus, Z00.00 - Encounter for general adult medical examination without abnormal findings Vitamin D 25-OH Total 1 Month E78.5 - Hyperlipidemia, unspecified, G40.209 - Localization-related (focal) (partial) symptomatic epilepsy and epileptic syndromes with complex partial seizures, not intractable, without status epilepticus, Z00.00 - Encounter for general adult medical examination without abnormal findings Medications: Refilled ezetimibe 10 mg PO DAILY 90 caps 3RF
--- OUTSIDE RECORDS SUMMARY | 2025-08-25 14:57 | XMS_ITS | Clinical Summary ---
Author Organization [facility] ity Address [address] [place] [address] Care Team Providers Care Bending Shed Worker Name Role Phone Unavailable Primary Care Provider Unavailabl e Social History Tobacco Use Types Packs/Day Years Used Date Smoking Tobacco: Never Assessed Comments Unknown Sex and Gender Information Value Date Recorded Sex Assigned at Not on file Legal Sex Female 4:29 PM EST Gender Identity Not on file Sexual Orientation Not on file Plan of Treatment Health Maintenance Due Date Last Done Comments Colorectal Cancer Screening: Colonoscopy 1950 DTaP,Tdap,and Td Vaccines (1 - Tdap) 1971 Pneumococcal Vaccine: 50+ Ye ars (1 of 1 - PCV) 2002 Zoster Vaccines (1 of 2) 2002 Breast Cancer Screening 10/05/2020 10/05/2018 Falls Risk Assessment 07/05/2024 Hepatitis C Screening 07/05/2024 Osteoporosis Screening (Bone Density Screening) 07/05/2024 Social Influencers of Health Screening 07/05/2024 Depression Screening 11/10/2024 COVID-19 Vaccine ( - 2023-2 5 season) 2025 Influenza Vaccine (#1) 2025 RSV Immunization Adult Patie nts (1 [...] Procedure Name Priority Date/Time Associated Diagnosis Comments [facility] SCREENING DIGITAL Routine 10/05/2018 8:23 AM EST Encounter for screening mammogram for malignant neoplasm of breast from Last 3 Months or Most Recently Relevant to Health Maintenance Results * [facility] SCREENING DIGITAL (10/05/2018 8:23 AM EST) Anatomical Region Laterality Modality Mammography 10/05/2018 7:27 AM EST Narrative 10/05/2018 8:23 AM EST [facility] Diagnostic Imaging Department [address] [place] [address] Patient: JORGEMARTHA /Age/Sex: 1950 - 68 - F Unit#: [id number] [facility] Ordering Physician: CELIO RAMESH DO [facility] [place] Digital - 10/05/18 - 0746 INDICATION: SCREENING COMPARISON: [facility] mammograms dating back to 08/13/2012 FINDINGS: CC and MLO views of the breasts were obtained, using full field digital mammography with 3D tomosynthesis views in the MLO projection. Computer aided detection with the iCAD SecondLook 7.2-H was employed. The breasts contain scattered fibroglandular tissues. A noncalcified nodule within the anteromedial right breast is not significantly changed compared with multiple prior exams, in keeping with a benign finding. No suspicious masses, suspicious microcalcifications, or areas of architectural distortion are identified. There are no secondary signs of breast malignancy. Compared to the prior exam, no adverse interval change. IMPRESSION: No specific mammographic evidence of breast malignancy. Lack of a mammographic finding in the presence of a clinically suspicious palpable abnormality does not preclude the possibility of malignancy or alter the indications for biopsy. BI-RADS - Category 2 - Benign finding 3342F, 7025F Annual screening mammography is recommended. Patient entered into a reminder system with a target date for the next mammogram. G0202 14735) , [id number] Dictating Physician: QUINTEN MASON MD Electronically Signed by: QUINTEN MASON MD Dic Date/Time: 10/05/18 0758 Sign date/Time: 10/05/18 0823 Procedure Note Quinten Mason MD - 10/29/2022 [facility] Diagnostic Imaging Department [address] [place] [id number] Patient: MARTHA SCOTTO.B./Age/Sex: 1950 - 68 - F Unit#: [id number] Location/Status: [facility] CLI Mnemonic/Ordering Site: [facility] Ordering Physician: CELIO RAMESH DO [place] Screening Digital - 10/05/18 - 0746 INDICATION: SCREENING COMPARISON: [facility] mammograms dating back to 08/13/2012 FINDINGS: CC and MLO views of the breasts were obtained, using full field digital mammography with 3D tomosynthesis views in the MLO projection. Computeraided detection with the [employer] 7.2-H was employed. The breasts contain scattered [...] target date for the next mammogram. G0202 / [id number] , [id number] Dictating Physician: QUINTEN MASON MD Electronically Signed by: QUINTEN MASON MD Dic Date/Time: 10/05/18 0758 Sign date/Time: 10/05/18 0823 us Celio DUMONT BI PROCEDURES Final Result from Last 3 Months or Most Recently Relevant to Health Maintenance
--- OUTSIDE RECORDS SUMMARY | 2025-08-25 14:57 | XMS_ITS | Patient Health Record ---
Author Organization [facility] Address [address] [place] [address] Care Team Providers Care Protective Signal Repairer Name Role Phone Darline Mckeon MD Primary Care Provider Rommel Strickland Unavailable [phone] Allergies Allergen (clinical drug ingredient) Drug/Non Drug Allergy documented on EMR Reaction Allergy Type Onset Date Status Substance with 6-pjvqoqx-1-methylgluta ryl-coenzyme A reductase inhibitor mechanism of action (substance) statin drugs (uncoded) Unknown Allergy Activ e Reason For Referral No Information Medications Medication SIG (Take, Route, Fr equency, Duration) Notes Start Date End Date Status Ezetimibe 10 MG TAKE ONE TABLET BY M OUTH ONCE DAILY Oral; Duration: 90 Active OXcarbazepine 150 MG TAKE ONE TABLET BY MOUTH EVERY MORNING & TAKE TWO TABLETS BY MOUTH AT BEDTIME Oral; Duration: 30 Active Aspirin 81 81 MG 1 tablet Orally Once a day; Duration: 30 day(s) Active Immunizations Vaccine Route Administration Date Status Comme nts Influenza Unknown 11/24/2019 Refused Problems Problem Type SNOMED Code ICD Code Onset Dates Problem Status W/U Status Risk Notes Problem Screening for malignant neoplasm of colon (681464316) Encounter for screening for malignant neoplasm of colon (Z12.11) Active confirmed Problem Preprocedural examination (644082363425029) Preprocedural examination (Z01.818) Active confirmed Problem Long-term current use of antiplatelet drug (322916779982056) Long-term use of aspirin therapy (Z79.82) Active confirmed Problem History of adenomatous polyp of colon (197186921) Hx of adenomatous colonic polyps (Z86.010) Active confirmed Plan Of Treatment Future Test Test Name Order Date COLONOSCOPY 12/13/2014 COLONOSCOPY 11/24/2019 Next Appt Details Provider Name:Rommel Jackson , 11/15/2025 10:50:00 AM, [address], [address], [place], [address], Insurance Providers Payer Name Payer Address Payer Phone Subscriber Number Group Number Insured Name Patient Relationship to Insured Coverage Start Date Coverage End Date [facility] [employer] [address] [place] [address] [id number] KENDALL Self - patient is the insured Medical (General) History Medical History History ICD Code Screening colonoscopy 01/01/2005--hyperp lastic polyp Fibromyalgia Lower back problems--spinal stenosis/sci atica Depression Denies CO,DM,CVA,Lung disease,renal dise ase Syncope in 08/2014---neg. workup--at [facility] UTI Screening Colonoscopy in 02/2015 with a s mall tubular adenoma removed Seizures Hyperlipidemia Surgical History Surgery Date(Month/Year) Left inguinal hernia repair 11/11/2018
== END 2025-08-25 13:47 | disposition home or self-care (01) ==
LOC: HO.HMCC 11:36
PROVIDERS: PCP Internal Medicine; Visit Provider Internal Medicine
DX: E78.5 Hyperlipidemia, unspecified (principal); G40.209 Localization-related (focal) (partial) symptomatic epilepsy and epileptic syndromes with complex partial seizures, not intractable, without status epilepticus; M54.50 Low back pain, unspecified

== ENCOUNTER → 2025-08-25 11:35 | Outpatient (BNVA) | payer MEDICARE, SELFPAY | PROVIDERS: PCP Internal Medicine; Visit Provider Internal Medicine | DX: M25.561 Pain in right knee (principal); M54.30 Sciatica, unspecified side; G40.209 Localization-related (focal) (partial) symptomatic epilepsy and epileptic syndromes with complex partial seizures, not intractable, without status epilepticus; E78.5 Hyperlipidemia, unspecified | CPT/HCPCS: 96127; 99212 ==

== ENCOUNTER 2025-09-28 06:04 | Outpatient (REF) | payer MEDICARE, SELFPAY ==
[2025-09-28 10:35] LABS: MANUAL DIFF FLAG NO
[2025-09-28 10:39] LABS: Hematocrit 41.5 % (37.0-47.0); Hemoglobin 13.6 g/dl (12.0-16.0); Imm Gran Abs Auto 0.03 X10*3/uL (0.00-0.03); Imm Gran Pct Auto 0.5 % (0.0-0.4); Lymphocytes Absolute Auto 1.7 X10*3/uL (1.2-4.9); Mean Corpuscular HGB Conc 32.8 g/dl (31.0-35.0); Mean Corpuscular Hemoglobin 30.8 pg (27.0-33.0); Mean Corpuscular Volume 93.9 fL (80.0-98.0); NRBC Abs Auto 0.000 X10*3/uL (0.0-0.012); NRBC Pct Auto 0.0 /100WBC (0.0-0.2); Platelet Count 249 X10*3/uL (160-400); Red Blood Count 4.42 X10*6/uL (4.20-5.50); White Blood Count 6.1 X10*3/uL (4.8-10.8)
[2025-09-28 11:34] LABS: Alanine Aminotransferase 15 U/L (0-31); Albumin Level 4.5 g/dL (3.5-5.0); Alkaline Phosphatase 67 U/L (39-117); Anion Gap 10 (12-20); Aspartate Amino Transferase 25 U/L (5-31); Blood Urea Nitrogen 10 mg/dL (9-16); Calcium 9.6 mg/dL (8.4-10.2); Carbon Dioxide 27 mmol/L (22-29); Chloride 99 mmol/L (96-108); Cholesterol 251 mg/dL (<200); Estimated Glomerular Filt Rate > 60; HDL Cholesterol 70 mg/dL (>40); Potassium 3.9 mmol/L (3.3-5.1); Sodium 132 mmol/L (135-145); Total Protein 7.5 g/dL (6.5-8.0); Triglycerides 139 mg/dL (<150)
== END 2025-09-28 06:05 | disposition home or self-care (01) ==
LOC: HO.HMGCLDS 06:04
PROVIDERS: PCP Internal Medicine; Visit Provider Internal Medicine
DX: Z00.00 Encounter for general adult medical examination without abnormal findings (principal); E78.5 Hyperlipidemia, unspecified; E87.1 Hypo-osmolality and hyponatremia; E55.9 Vitamin D deficiency, unspecified; Z13.1 Encounter for screening for diabetes mellitus
CPT/HCPCS: 36415; 80053; 80061; 82306; 83036; 84443; 85025; 96127; 99397

== ENCOUNTER 2025-09-28 08:28 | Outpatient (AMB) | payer MEDICARE, SELFPAY ==
--- NOTE | 2025-09-28 08:31 | MHC.PC.OV ---
Vital Signs 09/28/25 08:32 Height 5 ft 6 in Weight 194 lb BMI 31.3 BP 118/74 Blood Pressure Location Lt brachial Position Sitting Respiration 17 Pulse 80 Pulse Source Pulse Oximeter Temp 98.0 F Temp Source Oral Pulse Oximetry (%) 97 Oxygen Delivery Method Room Air Intake Visit Reasons: Annual PE - see comments Intake Note: Pt is here today for PE. Allergies Quinolones (QUINOLONES) Allergy (Unknown, Verified 09/28/25 08:35) muscle loss Ttfkyio-CIZ-RcD Reductase Inhibitor (KVTJIDB-GTJ-MAB REDUCTASE INHIBITOR) Allergy (Unknown, Verified 09/28/25 08:35) weak lost muscle mass olmesartan Adverse Reaction (Verified 09/28/25 08:35) polyuria Medication List - Last Reconciled 09/28/25 by Darline Mckeon MD aspirin 81 mg PO DAILY cholecalciferol (vitamin D3) 5,000 units PO DAILY coenzyme Q10 (Ultra CoQ10) PO ezetimibe 10 mg PO DAILY flu vac 2020 65up-fajRO28S(PF) 60 mcg (15 mcg x 4)/0.5 mL IM glucosamine-chondroitin 250-200 mg (Osteo Bi-Flex) 1 tab PO ONCE [magnesium lysinate glycinate 200mg daily] oxcarbazepine 300 mg PO BID oxcarbazepine 150 mg PO DAILY turmeric root extract 500 mg PO DAILY [vitafusion Hair,skin,and nails formula 3 gummies per day] [wild [place]askan Eek oil 1000mg ] Tobacco use date assessed: 09/28/25 Dental Screening Dental Screen Date: 08/25/25 HPI Annual PE - see comments HPI Details Patient presents for physical. She will have a colonoscopy in November by Dr. Jackson [facility] Medical History Lower back pain Complex partial seizure Postmenopausal Hyponatremia Back pain Hyperacusis of left ear Arthritis Annual physical exam (~09/27/21) Vitamin D deficiency Normal colonoscopy Hyperlipidemia Inguinal hernia Fibromyalgia Surgical History History of colonoscopy Family History Father Parkinson disease Dementia Mother CVD (cardiovascular disease) Brother Afib Melanoma Daughter No problems noted. Daughter No problems noted. Social History Housing: House Alcohol intake: current Alcohol intake frequency: a few times a month Patient Tobacco Use Status: Former Tobacco user e-Cigarette/Vaping Use: Never Used service: No Current occupational status: employed Cognitive needs: No Hearing needs: No Vision needs: Yes Questionnaire PHQ-9 Over the last 2 weeks, how often have you been bothered by any of the following problems? 1. Little interest or pleasure in doing things: not at all 2. Feeling down, depressed, or hopeless: not at all 3. Trouble falling or staying asleep, or sleeping too much: not at all 4. Feeling tired or having little energy: several days 5. Poor appetite or overeating: not at all 6. Feeling bad about yourself - or that you are a failure or have let yourself or your family down: not at all 7. Trouble concentrating on things, such as reading the newspaper or watching television: not at all 8. Moving or speaking so slowly that other people could have noticed. Or the opposite - being so fidgety or restless that you have been moving around a lot more than usual: not at all 9. Thoughts that you would be better off or of hurting yourself in some way: not at all Total score: 1 Depression Screening Interpretation: Negative Depression Screening Done: Yes Source: Developed by Drs. Rommel Atkinson, Yisel Morales, Saul Troy and colleagues, with an educational lisa from [employer]. Thrive Questionnaire Date Thrive assessed: 08/25/25 I am a: Patient What is your living situation today?: I have a steady place to live Within the past 12 months, did the food you bought not last and you didn't have the money to get more?: Never true Within the past 12 months, did you worry whether your food would run out before you got money to buy more?: Never true Do you have trouble paying for medicines?: No Do you have trouble getting transportation to medical appointments?: No Do you have trouble paying your heating and electricity bill?: No Do you have trouble taking care of your child, family member or friend?: No Do you have trouble with day-to-day activities such as bathing, preparing meals, shopping, managing finances, etc.?: No Are you currently unemployed and looking for a job?: No Are you interested in more education?: No Please select the resources that you would like help with: None Currently or been in a relationship where the following occur: No concerns reported THRIVE Score: 0 DAYA-7 AMB Questionnaire DAYA-7 Date DAYA - 7 assessed: 08/25/25 Source: Developed by Drs. Rommel Atkinson, Yisel Morales, Saul Troy and colleagues, with an educational lisa from [employer]. Review of Systems Const All systems reviewed & are unremarkable except as noted in HPI and below Eyes Reports no additional complaints ENT Reports no additional complaints Card Reports no additional complaints Resp Reports no additional complaints GI Reports no additional complaints Reports no additional complaints Physical exam (Primary Care) Vital Signs: Last Vital Signs Temp 98.0 F 09/28/25 08:32 Pulse 80 09/28/25 08:32 Resp 17 09/28/25 08:32 BP 118/74 09/28/25 08:32 Pulse Ox 97 09/28/25 08:32 Oxygen Delivery Method Room Air 09/28/25 08:32 BMI result Body Mass Index 31.3 Tobacco/Smoking Status: Tobacco use Status Tobacco use date assessed 09/28/25 09/28/25 08:38 Patient Tobacco Use Status Former Tobacco user 09/28/25 08:31 e-Cigarette/Vaping Use Never Used 09/28/25 08:31 PHQ-9: PHQ-9 Score PHQ-9: Total score 1 09/28/25 08:59 Depression Screening Interpretation: Negative Thrive Assessment: Date of Thrive Assessment Date Thrive assessed 08/25/25 09/28/25 08:31 Currently or been in a relationship where the following occur: No concerns reported Const General: no acute distress HENMT Head: Yes normal to inspection Face and sinus: Yes normal facial exam Mouth: Normal oral and palatal mucosa present Throat: Yes posterior oropharynx normal Eyes General: appearance normal, both eyes and all related structures Neck Neck: Yes no lymphadenopathy and Yes supple Resp Effort & Inspection: normal respiratory effort Auscultation: clear to auscultation bilaterally Cardio Rhythm: regular rhythm Heart sounds: S1 normal heart sound present and S2 normal heart sound present GI Inspection: Yes normal to inspection Palpation (GI): Soft to palpation Percussion: Yes normal to percussion Auscultation: normal bowel sounds Extrem General: Yes no clubbing, cyanosis or edema Coding Level of Care Code Est Pt Prev Care >65y(10864) Diagnoses Hyperlipidemia E78.5 Annual physical exam Z00.00 Hyponatremia E87.1 Assessment & Plan Assessment & Plan (1) Hyperlipidemia: Comment: intolerant to statin, improved on Zetia, Code(s): E78.5 - Hyperlipidemia, unspecified Category: Medical Plan: Continue Zetia low-cholesterol diet patient will have a fasting blood work this morning (2) Annual physical exam: Onset Date: ~09/27/21 Code(s): Z00.00 - Encounter for general adult medical examination without abnormal findings Category: Medical Plan: Well-balanced diet regular physical activity discussed with the patient she is up-to-date with the mammogram DEXA and will have a colonoscopy in November (3) Hyponatremia: 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 Panel Fast 1 Year E55.9 - Vitamin D deficiency, unspecified, E78.5 - Hyperlipidemia, unspecified, E87.1 - Hypo-osmolality and hyponatremia, Z00.00 - Encounter for general adult medical examination without abnormal findings Lipid Panel 1 Year E55.9 - Vitamin D deficiency, unspecified, E78.5 - Hyperlipidemia, unspecified, E87.1 - Hypo-osmolality and hyponatremia, Z00.00 - Encounter for general adult medical examination without abnormal findings Hemoglobin A1c 1 Year E55.9 - Vitamin D deficiency, unspecified, E78.5 - Hyperlipidemia, unspecified, E87.1 - Hypo-osmolality and hyponatremia, Z00.00 - Encounter for general adult medical examination without abnormal findings Vitamin D 25-OH Total 1 Year E55.9 - Vitamin D deficiency, unspecified, E78.5 - Hyperlipidemia, unspecified, E87.1 - Hypo-osmolality and hyponatremia, Z00.00 - Encounter for general adult medical examination without abnormal findings Complete Blood Count Auto Diff 1 Year E55.9 - Vitamin D deficiency, unspecified, E78.5 - Hyperlipidemia, unspecified, E87.1 - Hypo-osmolality and hyponatremia, Z00.00 - Encounter for general adult medical examination without abnormal findings Microalbumin, Random (w Creat) Today E55.9 - Vitamin D deficiency, unspecified, E78.5 - Hyperlipidemia, unspecified, E87.1 - Hypo-osmolality and hyponatremia, Z00.00 - Encounter for general adult medical examination without abnormal findings
[2025-09-28 08:32] VITALS: BP 118/74; PULSE 80; RESP 17; TEMP 36.7; O2SAT 97; BMI 31.3
--- OUTSIDE RECORDS SUMMARY | 2025-09-28 16:14 | XMS_ITS | Patient Health Record ---
Author Organization [facility] Address [address] [place] [address] Care Team Providers Care Forming Fixer Name Role Phone Darline Mckeon MD Primary Care Provider Rommel Strickland [phone] Allergies Allergen (clinical drug ingredient) Drug/Non Drug Allergy documented on EMR Reaction Allergy Type Onset Date Status Substance with 8-gdzhvub-2-methylgluta ryl-coenzyme A reductase inhibitor mechanism of action (substance) statin drugs (uncoded) Unknown Allergy Activ e Reason For Referral No Information Medications Medication SIG (Take, Route, Frequency, Duration) Notes Start Date End Date Status Ezetimibe 10 MG Tablet TAKE ONE TABLET B Y MOUTH ONCE DAILY Oral; Duration: 90 Active OXcarbazepine 150 MG Tablet TAKE ONE TAB LET BY MOUTH EVERY MORNING & TAKE TWO TABLETS BY MOUTH AT BEDTIME Oral; Duration: 30 Active Aspirin 81 81 MG Tablet Delayed Release 1 tablet Orally Once a day; Duration: 30 day(s) Active Immunizations Vaccine Route Administration Date Status Comme nts Influenza Unknown 11/24/2019 Refused Social History Social History Additional Details Category Social Info Options Details Miscellaneous: Marital status: 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 [employer] Notes: Nonsmoker > 30 years; no sig alcohol Nonsmoker > 30 years; no sig alcohol Problems Problem Type SNOMED Code ICD Code Onset Dates Problem Status W/U Status Risk Notes Problem Screening for malignant neoplasm of colon (213277644) Encounter for screening for malignant neoplasm of colon (Z12.11) Active confirmed Problem Preprocedural examination (838346378202221) Preprocedural examination (Z01.818) Active confirmed Problem Long-term current use of antiplatelet drug (184714242577001) Long-term use of aspirin therapy (Z79.82) Active confirmed Problem History of adenomatous polyp of colon (521233835) Hx of adenomatous colonic polyps (Z86.010) Active confirmed Plan Of Treatment Future Test Test Name Order Date COLONOSCOPY 12/13/2014 COLONOSCOPY 11/24/2019 Next Appt Details Provider Name:Rommel Jackson , 11/15/2025 10:50:00 AM, [address] [facility], [address], [place], [address], Insurance Providers Payer Name Payer Address Payer Phone Subscriber Number Group Number Insured Name Patient Relationship to Insured Coverage Start Date Coverage End Date O [employer] [address] [place] [address] [id number] KENDALL Self - patient is the insured Medical (General) History Medical History History ICD Code Screening colonoscopy 01/01/2005--hyperp lastic polyp Fibromyalgia Lower back problems--spinal stenosis/sci atica Depression Denies ME,DM,CVA,Lung disease,renal dise ase Syncope in 08/2014---neg. workup--at [facility] UTI Screening Colonoscopy in 02/2015 with a s mall tubular adenoma removed Seizures Hyperlipidemia Surgical History Surgery Date(Month/Year) Left inguinal hernia repair 11/11/2018
== END 2025-09-28 09:32 | disposition home or self-care (01) ==
LOC: HO.HMCC 08:28
PROVIDERS: PCP Internal Medicine; Visit Provider Internal Medicine
DX: Z00.00 Encounter for general adult medical examination without abnormal findings (principal); E78.5 Hyperlipidemia, unspecified; E87.1 Hypo-osmolality and hyponatremia

== ENCOUNTER 2025-10-27 09:00 | Outpatient (AMB) | payer MEDICARE, SELFPAY ==
--- NOTE | 2025-10-27 09:05 | A.OFFVIS_ITS ---
Intake Visit Reasons: 6m follow up Allergies Quinolones (QUINOLONES) Allergy (Unknown, Verified 09/28/25 08:35) muscle loss Bohelgk-UAJ-SpO Reductase Inhibitor (BZTDYRB-ECJ-FOZ REDUCTASE INHIBITOR) Allergy (Unknown, Verified 09/28/25 08:35) weak lost muscle mass olmesartan Adverse Reaction (Verified 09/28/25 08:35) polyuria HPI Comments Details: 75 y/o woman with cerebral microvascular disease of brain, a closed head injury, and complex partial seizure disorder. (She was working on a computer. One minute she was working and then she woke up on the floor. She was told that she passed out. There was no convulsion or incontinence. She was down probably for a few seconds. She was not confused aferwards. During the second episode, she was sitting in a chapel in a [place]. Meditative music was on. She started to feel very very strange. It kept intensifying, like an aura , she was going papi. She was aware where she was but the noise and the background seems far away. When she came about, someone was speaking. The person next to her thought she was having some kind of tremor. She started to feel extreme vertigo, nausea for about 45 minutes. Afterwards she was extremely tired. She went home and slept. She was tired for 24 hours. Her sense of taste was altered for 24-36 hours. Brain MRI revealed non specific white matter lesions, and a routine EEG was OK. With clinical diagnosis of dyscognitive seizure disorder, she was treated with Oxcarbazepine). She is presenting for a follow-up on her neurological conditions. She reports developing a severe case of right-sided sciatica approximately 4-5 weeks after her last visit, which was preceded by a burning sensation up the back of her leg. At its worst, her leg started to give out. She initially treated the sciatica with heat and rest, which helped it improve. She subsequently saw Dr. Tang, who prescribed physical therapy, which taught her beneficial stretches and exercises to avoid. Her sciatica is now much better, with only occasional twinges that she manages with a heat wrap. Her carpal tunnel syndrome is reported to be under control, and she denies any seizure-like activity. She takes Oxcarbazepine 150 mg in the morning and 300 mg at night. She is trying to control her sugar intake, noting her grandson with epilepsy and daughter with fibromyalgia have had significant improvement with a keto diet. [facility] Medical History (Updated 10/27/25 @ 09:13 by Megan Felder MD) Lower back pain Complex partial seizure Postmenopausal Hyponatremia Back pain Hyperacusis of left ear Arthritis Annual physical exam (~09/27/21) Vitamin D deficiency Normal colonoscopy Hyperlipidemia Inguinal hernia Fibromyalgia Surgical History History of colonoscopy Family History Father Parkinson disease Dementia Mother CVD (cardiovascular disease) Brother Afib Melanoma Daughter No problems noted. Daughter No problems noted. Social History Housing: House Alcohol intake: current Alcohol intake frequency: a few times a month Patient Tobacco Use Status: Former Tobacco user e-Cigarette/Vaping Use: Never Used service: No Current occupational status: employed Cognitive needs: No Hearing needs: No Vision needs: Yes Review of Systems Narrative - Neurological: Reports a recent severe episode of right-sided sciatica, which is now significantly improved with only occasional twinges. Reports her carpal tunnel is under control. Denies seizures. - Musculoskeletal: Reports a history of leg weakness associated with acute sciatica, which has resolved. Reports a pre-sciatica history of a burning sensation in the back of her leg. - Constitutional: Reports feeling much better. Physical Exam Neuro Other: Mental Status: Alert and oriented to person, place, and time. Normal attention. Normal spontaneous speech, fluency, and comprehension. Cranial Nerves: CN II: Visual jennings full to confrontation, visual acuity intact. CN III, IV, : Pupils equal, round, reactive to light and accommodation. Extraocular movements are normal. CN V: Facial sensation is normal. CN VII: Facial movements symmetrical. CN VIII: Hearing intact to bedside conversation is normal. CN IX, X: Palate elevates symmetrically. CN XI: Shoulder shrug and head turn symmetrical. CN XII: Tongue midline without atrophy or fasciculations. Extrapyramidal: Full facial expressions and blinking. No rigidity. Movements are appropriate with no tremor or abnormality. Speech: Normal; no dysarthria or tremor. Assessment & Plan Assessment & Plan (1) Complex partial seizure: Comment: MRI brain WO at [facility] [place] in Aug 2017: No new lesion or change Routine EEG at office in Aug 2017: WNL MRI brain WWO at [facility] [place] In 2006: a few non specific WM changes on FLAIR MRI brain WWO at [facility] [place] in 2013: few more WM changes Code(s): G40.209 - Localization-related (focal) (partial) symptomatic epilepsy and epileptic syndromes with complex partial seizures, not intractable, without status epilepticus Category: Medical (2) Fibromyalgia: Code(s): M79.7 - Fibromyalgia Category: Medical (3) Carpal tunnel syndrome: Comment: NCV/EMG ALL (in office) Moderate right and mild to moderate left median neuropathy across the Carpal tunnel. Mild bilateral lower, probably L4/5, radiculopathy. 04/21/25. Code(s): G56.00 - Carpal tunnel syndrome, unspecified upper limb Category: Medical Qualifiers: Laterality: bilateral Qualified Code(s): G56.03 - Carpal tunnel syndrome, bilateral upper limbs Plan Impression: a: Complex partial seizure disorder b: Fibromylgia c: Carpal tunnel syndrome d: Lumbar radicular type pain syndrome Rec: Oxcarbazepine 150mg, one in am and two at night Her overall situation was stable in her medicine was continued. Back pain and hand pain related to carpal tunnel syndrome can be managed as needed. At this time she was not having any significant pain. Medications: Changed From oxcarbazepine 150 mg PO DAILY 90 tabs 0RF To oxcarbazepine 150 mg orally one in am and two at night; 270 tabs 1RF Coding Level of Care Code Est Pt Level 4 (48717) Diagnoses Complex partial seizure G40.209 Fibromyalgia M79.7 Bilateral carpal tunnel syndrome G56.03 Laterality: bilateral
--- OUTSIDE RECORDS SUMMARY | 2025-10-27 10:04 | XMS_ITS | Clinical Summary ---
Author Organization [facility] ity Address [address] [place] [address] Care Team Providers Care Coffee Grinder Name Role Phone Unavailable Primary Care Provider [...] Screening 07/05/2024 Depression Screening 11/10/2024 COVID-19 Vaccine (1 - 2024-2 6 season) 2025 Influenza Vaccine (#1) 2025 RSV [...] Procedure Name Priority Date/Time Associated Diagnosis Comments [facility] SCREENING DIGITAL Routine 10/05/2018 8:23 AM EST Encounter for screening mammogram for malignant neoplasm of breast from Last 3 Months or Most Recently Relevant to Health Maintenance Results * [facility] SCREENING DIGITAL (10/05/2018 8:23 AM EST) Anatomical Region Laterality Modality Mammography 10/05/2018 7:27 AM EST Narrative 10/05/2018 8:23 AM EST Diagnostic Imaging Department [address] [place] [address] Patient: JORGEMARTHA /Age/Sex: 1950 - 68 - F Unit#: [id number] [facility]Ordering Site: [facility] Ordering Physician: CELIO RAMESH DO [facility] Screening Digital - 10/05/18 - 0746 INDICATION: SCREENING COMPARISON: [facility] mammograms dating back to 08/13/2012 [...] target date for the next mammogram. [id number]) , [id number] Dictating Physician: QUINTEN MASON MD Electronically Signed by: QUINTEN MASON MD Dic Date/Time: 10/05/18 0758 Sign date/Time: 10/05/18 0823 Procedure Note Quinten Mason MD - 10/29/2022 Diagnostic Imaging Department [address] [place] [id number] Patient: MARTHA SCOTTO.B./Age/Sex: 1950 - 68 - F Unit#: [id number] Location/Status: [facility] CLI Mnemonic/Ordering Site: [facility] Ordering Physician: CELIO RAMESH DO [facility] Screening Digital - 10/05/18 - 0746 INDICATION: SCREENING COMPARISON: [facility] mammograms dating back to 08/13/2012 FINDINGS: CC and MLO views of the breasts were obtained, using full field digital mammography with 3D tomosynthesis views in the MLO projection. Computeraided detection with the Trapit 7.2-H was employed. The breasts contain scattered [...] date for the next mammogram. G0202 / [id number] , [id number] Dictating Physician: QUINTEN MASON MD Electronically Signed by: QUINTEN MASON MD Dic Date/Time: 10/05/18 0758 Sign date/Time: 10/05/18 0823 us Celio DUMONT BI PROCEDURES Final Result from Last 3 Months or Most Recently Relevant to Health Maintenance
--- OUTSIDE RECORDS SUMMARY | 2025-10-27 10:04 | XMS_ITS | Patient Health Record ---
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[employer] Notes: Nonsmoker > 30 years; no sig alcohol Nonsmoker > 30 years; no sig alcohol Problems Problem Type SNOMED Code ICD Code Onset Dates Problem Status W/U Status Risk Notes Problem Screening for malignant neoplasm of colon (913170688) Encounter for screening for malignant neoplasm of colon (Z12.11) Active confirmed Problem Preprocedural examination (174559945944569) Preprocedural examination (Z01.818) Active confirmed Problem Long-term current use of antiplatelet drug (399000231198134) Long-term use of aspirin therapy (Z79.82) Active confirmed Problem History of adenomatous polyp of colon (071368851) Hx of adenomatous colonic polyps (Z86.010) Active confirmed Plan Of Treatment Future Test Test Name Order Date COLONOSCOPY 12/13/2014 COLONOSCOPY 11/24/2019 Next Appt Details Provider Name:Rommel Jackson , 11/15/2025 10:50:00 AM, [address], [address], [place], [address], Medical (General) History Medical History History ICD Code Screening colonoscopy 01/01/2005--hyperp lastic polyp Fibromyalgia Lower back problems--spinal stenosis/sci atica Depression Denies SC,DM,CVA,Lung disease,renal dise ase Syncope in 08/2014---neg. workup--at [facility] UTI Screening Colonoscopy in 02/2015 with a s mall tubular adenoma removed Seizures Hyperlipidemia Surgical History Surgery Date(Month/Year) Left inguinal hernia repair 11/11/2018
== END 2025-10-27 09:17 | disposition home or self-care (01) ==
LOC: HO.HSM 09:01
PROVIDERS: PCP Internal Medicine; Referring Provider Internal Medicine; Visit Provider Psychiatry & Neurology Neurology
DX: G40.209 Localization-related (focal) (partial) symptomatic epilepsy and epileptic syndromes with complex partial seizures, not intractable, without status epilepticus (principal); M79.7 Fibromyalgia; G56.03 Carpal tunnel syndrome, bilateral upper limbs
CPT/HCPCS: 99214

== ENCOUNTER → 2025-10-27 09:00 | Outpatient (BNVA) | payer MEDICARE, SELFPAY | PROVIDERS: PCP Internal Medicine; Referring Provider Internal Medicine; Visit Provider Psychiatry & Neurology Neurology | DX: G40.209 Localization-related (focal) (partial) symptomatic epilepsy and epileptic syndromes with complex partial seizures, not intractable, without status epilepticus (principal); M79.7 Fibromyalgia; G56.03 Carpal tunnel syndrome, bilateral upper limbs | CPT/HCPCS: 99212 ==